=== PATIENT | female | born 2000 | race Caucasian/White ===

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

== ENCOUNTER 2024-02-12 13:07 | Outpatient (CLI) | payer OTHER, SELFPAY ==
--- NOTE | ~2024-02-12 | CT_ITS ---
EXAMINATION: CT abdomen pelvis w con DATE: 02/12/2024 13:42 INDICATION: Low abdominal pain. TECHNIQUE: Computed tomography (CT) of the abdomen and pelvis was performed with 100 mL Omnipaque 350 intravenous contrast. Automated exposure control and iterative reconstruction technique were employe d. The dose-length product was 1519.16 mGy-cm. COMPARISON: None. FINDINGS: The visualized portions of the lung bases demonstrate a calcified left lower lobe nodule, c onsistent with old granulomatous disease. No pleural effusion. The heart size is normal. No pericardi al effusion. The liver, gallbladder, spleen, pancreas, adrenal glands, and kidneys are normal. There are no dilated loops of bowel. The appendix is normal. There are no pathologically enlarged lymph nod es. There is no free intraperitoneal fluid. There is mild lumbar spondylosis. IMPRESSION: 1. No etiology for the patient's symptoms. Reviewed, dictated and finalized at location A. SYSTEMS ENGINEER
== END 2024-02-12 13:08 | disposition home or self-care (01) ==
PROVIDERS: PCP Family Medicine; Visit Provider Nurse Practitioner
DX: R10.30 Lower abdominal pain, unspecified (principal); R19.4 Change in bowel habit; K62.5 Hemorrhage of anus and rectum
CPT/HCPCS: 74177; Q9967

== ENCOUNTER 2024-02-23 00:45 | Day surgery (SDC) | payer OTHER, SELFPAY ==
[2024-02-10 14:55] VITALS: BMI 54.9
[2024-02-23 12:00] VITALS: BP 122/82; PULSE 93; RESP 18; TEMP 36.3; O2SAT 98
[2024-02-23 12:04] LABS: BEDSIDEPREGUCG Negative (Negative)
[2024-02-23] MEDS: LACTATED RINGERS 1,000 ML 150 ML IV CONT (12:06)
--- NOTE | 2024-02-23 12:38 | WPDANESEPPF ---
Anes - Initial Pre Proc Eval Procedure: Operation Date: 02/23/24 14:00 Proposed Procedures p Esophagogastroduodenoscopy & Colonoscopy - Eliel Sousa MD Date/Time: 02/23/24 12:38 Surgeon: Eliel Sousa MD Pre Op Diagnosis: Eructation,change in BM,constipation Patient Data Age: 23 Gender: F Height: 1.68 m Weight: 155.5 kg Last Vital Signs Temp 97.3 F L 02/23/24 12:00 Pulse 93 02/23/24 12:00 Resp 18 02/23/24 12:00 BP 122/82 02/23/24 12:00 Pulse Ox 98 02/23/24 12:00 O2 Del Method Room Air 02/23/24 12:00 Allergies Allergy/AdvReac Type Severity Reaction Status Date / Time No Known Allergies Allergy Mild Verified 02/10/24 14:34 Home Medications ?Medication ?Instructions ?Recorded ?Confirmed ?Type famotidine 40 mg tablet 40 mg PO DAILY #30 tabs 01/26/24 02/23/24 Rx norethindrone 1 mg-ethinyl 1 tablet PO DAILY 01/26/24 02/23/24 History estradiol 20 mcg (24)-iron 75 mg (4) tablet (Chica 24 Fe) naproxen 500 mg tablet 500 mg PO DAILY PRN pain 02/10/24 02/23/24 History Laboratory Tests 02/23/24 12:03 POC Urine HCG, Qual Negative (Negative) Patient hx anesthesia problems: none Family hx anesthesia problems: none Results Review: All pre-operative results and documents have been reviewed as part of the pre-operative evaluation. [facility] Social History Social History Smoking status: Never smoker Alcohol intake: never Substance use: never Substance use type: does not use Living arrangements: dorm student housing Additional living arrangements comments: Apartment in [facility] [place] [employer] [facility] care concerns: No Anes - Eval Final PreProcedure Day of Procedure 02/23/24 12:38 Patient weight: morbidly obese Heart: regular rate and rhythm Lungs: clear to auscultation Airway: Mallampati scale class II Neurological: alert and oriented Last oral intake: >/= 8 hours ASA classification: III Emergent: no Anesthetic plan: proceed Anesthesia type and monitoring: general GIVS and standard monitoring Results Review: All pre-operative results and documents have been reviewed as part of the pre-operative evaluation. BMI 55. 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 Informed Consent: The patient's anesthetic plan and its attendant risks and benefits were discussed with the patient/family/POA. Questions were solicited and answers provided to the satisfaction of the patient/family/POA.
--- NOTE | 2024-02-23 12:44 | WPDHPUPDATE1 ---
History and Physical Update Update Date/Time: 02/23/24 12:44 History and Physical has been reviewed, including an updated exam of the patient. There are NO changes in the patient's condition. Risks, benefits, and alternatives have been discussed and questions answered. Patient agrees to proceed with procedure.
--- NOTE | 2024-02-23 13:09 | SUR.OPER ---
EGD START 1252, END 1256 COLONOSCOPY START 1303, END 1309
[2024-02-23 13:14] VITALS: BP 124/97; PULSE 97; RESP 24; O2SAT 97
[2024-02-23 13:24] VITALS: BP 118/60; PULSE 79; RESP 17; O2SAT 100
[2024-02-23 13:34] VITALS: BP 112/59; PULSE 79; RESP 20; O2SAT 100
--- OUTSIDE RECORDS SUMMARY | 2024-03-01 03:03 | XMS_ITS | Clinical Summary ---
Author Organization [facility] Address [address] [place] [address] Care Team Providers Care Disintegrator Operator Name Role Phone Jeremiah Jean MD Primary Care Provider [phone]- [phone] [facility] [email or web address],non-[facility] Affiliates and Associated Physician Practices is amultiple site organization consisting of ambulatory clinics and hospital sitesin [place], [place], [place] and [place]. This disclosure is being madepursuant to the Care Everywhere program and may not contain all information available regarding this patient. Last updated 17.[facility] [email or web address] Allergies No known active allergies Medications * Be aware that medications may not be up to date on this document. Alwaysverify current medications with the patient. Medication Sig Dispensed Refills Start Date End Date Status riboflavin 100 MG tablet Take 4 tablets by mouth once daily 30 tablet 5 03/26/2019 Active naproxen (NAPROSYN) 500 MG tablet Take 1 tablet by mouth every 48 hours as needed for Pain 20 tablet 4 03/26/2019 Active ferrous sulfate 325 (65 FE) MG tablet Take 1 tablet by mouth 2 times daily 60 tablet 3 04/20/2019 Active Active Problems Problem Noted Date Diagnosed Date Chronic headache 03/26/2019 Family History Medical History Relation Name Comments Migraine Maternal Grandmother Brain Tumor Maternal Great-Grandmother Migraine Maternal Great-Grandmother Relation Name Status Comments Maternal Grandmother Maternal Great-Grandmother Social History Tobacco Use Types Packs/Day Years Used Date Smoking Tobacco: Passive Smo ke Exposure - Never Smoker Smokeless Tobacco: Never Sex and Gender Information Value Date Recorded Sex Assigned at Not on file Gender Identity Not on file Sexual Orientation Not on file Last Filed Vital Signs Vital Sign Reading Time Taken Comments Blood Pressure 110/62 04/19/2019 2:21 PM SENIOR MARKETING COORDINATOR Pulse 75 04/19/2019 2:21 PM SENIOR MARKETING COORDINATOR Temperature 36.7 ??C (98 ??F) 02/11/2019 8:47 AM SENIOR MARKETING COORDINATOR per pcp Respiratory Rate - - Oxygen Saturation 98% 04/19/2019 2:21 PM SENIOR MARKETING COORDINATOR Inhaled Oxygen Concentration - - Weight 120.2 kg (264 lb 15.9 oz) 04/19/2019 2:21 PM SENIOR MARKETING COORDINATOR Height 166.5 cm (5' 5.55 ) 04/19/2019 2:21 PM CS T Body Mass Index 43.36 04/19/2019 2:21 PM SENIOR MARKETING COORDINATOR Plan of Treatment Health Maintenance Due Date Last Done Comments PAP SMEAR 2002 HIV SCREENING 2017 HPV VACCINE (1 - 3-dose series) 2017 CHLAMYDIA/GONORRHEA SCREENING 2018 HEPATITIS C SCREENING 09/24/2020 DTAP/TDAP/TD VACCINES (1 - Tdap) 2021 HEPATITIS B VACCINE (1 of 3 - 19+ 3-dose series) 2021 DEPRESSION SCREENING 03/03/2023 COVID-19 VACCINE (1 - 2023-2 5 season) 2023 INFLUENZA VACCINE (#1) 2023 ZOSTER VACCINE (1 of 2) 2052 HIB VACCINE Aged Out No longer eligi ble based on patient's age to complete this topic MENINGOCOCCAL VACCINE Aged Out No carol agatha eligible based on patient's age to complete this topic PNEUMOCOCCAL VACCINE Aged Out No long er eligible based on patient's age to complete this topic Care Teams Disintegrator Operator Relationship Specialty Start Date End Date Jeremiah Jean MD [address] [place] [address] PCP - General Family Medicine 02/16/19
--- OUTSIDE RECORDS SUMMARY | 2024-03-01 03:03 | XMS_ITS | Patient Health Summary ---
Author Organization [facility] Address [address] [facility] [facility] [place] [address] Care Team Providers Care Automobile Radio Repairer Name Role Phone Jeremiah Jean MD Primary Care Provider [phone]- [phone] Note from [facility],non-owned Affiliates and Associated Physician Practices is amultiple site organization consisting of ambulatory clinics and hospital sitesin [place], [place], [place] and [place]. This disclosure is being madepursuant to the Care Everywhere program and may not contain all information available regarding this patient. Last updated 17.[facility] Allergies No known active allergies Medications * Be aware that medications may not be up to date on this document. Alwaysverify current medications with the patient. * riboflavin 100 MG tablet(Started 03/26/2019) Take 4 tablets by mouth once daily 5 refills by 03/25/2020 * naproxen (NAPROSYN) 500 MG tablet(Started 03/26/2019) Take 1 tablet by mouth every 48 hours as needed for Pain 4 refills by 03/25/2020 * ferrous sulfate 325 (65 FE) MG tablet(Started 04/20/2019) Take 1 tablet by mouth 2 times daily 3 refills by 04/19/2020 Active Problems Problem Noted Date Diagnosed Date Chronic headache 03/26/2019 Social History Tobacco Use Types Packs/Day Years Used Date Smoking Tobacco: Passive Smo ke Exposure - Never Smoker Smokeless Tobacco: Never Sex and Gender Information Value Date Recorded Sex Assigned at Not on file Gender Identity Not on file Sexual Orientation Not on file Last Filed Vital Signs Vital Sign Reading Time Taken Comments Blood Pressure 110/62 04/19/2019 2:21 PM SCIENTIFIC INFORMATICS LEADER Pulse 75 04/19/2019 2:21 PM SCIENTIFIC INFORMATICS LEADER Temperature 36.7 ??C (98 ??F) 02/11/2019 8:47 AM SCIENTIFIC INFORMATICS LEADER per pcp Respiratory Rate - - Oxygen Saturation 98% 04/19/2019 2:21 PM SCIENTIFIC INFORMATICS LEADER Inhaled Oxygen Concentration - - Weight 120.2 kg (264 lb 15.9 oz) 04/19/2019 2:21 PM SCIENTIFIC INFORMATICS LEADER Height 166.5 cm (5' 5.55 ) 04/19/2019 2:21 PM CS T Body Mass Index 43.36 04/19/2019 2:21 PM SCIENTIFIC INFORMATICS LEADER Procedures * FERRITIN(Performed 04/19/2019) Performed for Restless legs syndrome (RLS) * VITAMIN D 25-HYDROXY(Performed 04/19/2019) Performed for Restless legs syndrome (RLS) Results * (ABNORMAL) VITAMIN D (25-HYDROXY) (04/19/2019 3:11 PM SCIENTIFIC INFORMATICS LEADER) Vitamin D, 25 Hydroxy 19.1(L) 20 - 100 ng/mL 04/19/2019 5:35 PM SCIENTIFIC INFORMATICS LEADER [facility] Blood BLOOD SPECIMEN / Unknown Lab Venipuncture / Unknown 04/19/2019 3:11 PM SCIENTIFIC INFORMATICS LEADER 04/19/2019 3:23 PM SCIENTIFIC INFORMATICS LEADER Narrative [facility] - 04/19/2019 5:35 PM SCIENTIFIC INFORMATICS LEADER Vitamin D Status: ?Deficient ? <10 ?? ng/mL ? Borderline ?10-20 ng/mL ?Sufficient ?>20 ?? ng/mL ?Toxic ? >100 ??ng/mL Cristina Lucas APRN-SLIVER LAP TENDER LAB - CHEMISTR Y ORDERABLES Performing Organization Address City/State/[place]UST de Phone Number [facility] [address] [place] [address]. [place] [address] * FERRITIN (04/19/2019 3:11 PM SCIENTIFIC INFORMATICS LEADER) Ferritin 10 10 - 120 ng/mL 04/19/2019 5:35 PM SCIENTIFIC INFORMATICS LEADER [facility] Blood BLOOD SPECIMEN / Unknown Lab Venipuncture / Unknown 04/19/2019 3:11 PM SCIENTIFIC INFORMATICS LEADER 04/19/2019 3:23 PM SCIENTIFIC INFORMATICS LEADER Cristina Lucas HARDWARE ENGINEERING MANAGER-SLIVER LAP TENDER LAB - CHEMISTR Y ORDERABLES Performing Organization Address City/State/[facility] Co de Phone Number [facility] [address] [place] [id number] Care Teams Automobile Radio Repairer Relationship Specialty Start Date End Date Jeremiah Jean MD [address] [place] [phone] PCP - General Family Medicine 02/16/19
--- OUTSIDE RECORDS SUMMARY | 2024-03-01 03:03 | XMS_ITS | Encounter Summary ---
Author Organization [facility] Address [address] [place] [address] Care Team Providers Care Ramp Service Agent Name Role Phone Jeremiah Jean MD Primary Care Provider [phone]- [phone] Reason for Visit * Reason Onset Date Comments MEDICATION REFILL 04/20/2019 Encounter Details Date Type Department Care Team (Late st Contact Info) Description 04/20/2019 Refill [facility] Pediatrics - Sleep [address] [place] [address] Cristina Lucas, STRIPPING AND BOOKING MACHINE OPERATOR-DRAW IN HAND [address] [place] [address] MEDICATION REFILL Social History Tobacco Use Types Packs/Day Years Used Date Smoking Tobacco: Passive Smo ke Exposure - Never Smoker Smokeless Tobacco: Never Sex and Gender Information Value Date Recorded Sex Assigned at Not on file Gender Identity Not on file Sexual Orientation Not on file documented as of this encounter Plan of Treatment Not on file documented as of this encounter Visit Diagnoses Not on filedocumented in this encounter Care Teams Ramp Service Agent Relationship Specialty Start Date End Date Jeremiah Jean MD [address] [place] [phone] PCP - General Family Medicine 02/16/19 documented as of this encounter
--- OUTSIDE RECORDS SUMMARY | 2024-03-01 03:03 | XMS_ITS | Encounter Summary ---
Author Organization [facility] Address [address] [place] [address] Care Team Providers Care Press Clippings Cutter And Paster Name Role Phone Jeremiah Jean MD Primary Care Provider Encounter Details Date Type Department Care Team (Latest Contact Info) Description 07/23/2019 Travel Social History Tobacco Use Types Packs/Day Years Used Date Smoking Tobacco: Passive Smo ke Exposure - Never Smoker Smokeless Tobacco: Never Sex and Gender Information Value Date Recorded Sex Assigned at Not on file Gender Identity Not on file Sexual Orientation Not on file COVID-19 Exposure Response Date Recorded In the last month, have you been in contact with someone who was confirmed or suspected to have Coronavirus / COVID-19? Unable to assess 07/23/2019 9:25 AM CDT documented as of this encounter Plan of Treatment Not on file documented as of this encounter Visit Diagnoses Not on filedocumented in this encounter Care Teams Press Clippings Cutter And Paster Relationship Specialty Start Date End Date Jeremiah Jean MD [address] [place] [address] PCP - General Family Medicine 02/16/19 documented as of this encounter
--- OUTSIDE RECORDS SUMMARY | 2024-03-01 03:03 | XMS_ITS | Encounter Summary ---
Author Organization [facility] Address [address] [place] [address] Care Team Providers Care Mail Clerk Bills Name Role Phone Jeremiah Jean MD Primary Care Provider Encounter Details Date Type Department Care Team (Latest Contact Info) Description 06/11/2019 Travel Social History Tobacco Use Types Packs/Day [...] have Coronavirus / COVID-19? Unable to assess 06/11/2019 12:07 PM CDT documented as of this encounter Plan of Treatment Not on file documented as of this encounter Visit Diagnoses Not on filedocumented in this encounter Care Teams Mail Clerk Bills Relationship Specialty Start Date End Date Jeremiah Jean MD [address] [place] [address] PCP - General Family Medicine 02/16/19 documented as of this encounter
--- OUTSIDE RECORDS SUMMARY | 2024-03-01 03:03 | XMS_ITS | Encounter Summary ---
Author Organization [facility] Address [address] [place] [address] Care Team Providers Care Emulsion Operator Name Role Phone Jeremiah Jean MD Primary Care Provider [phone]- [phone] Encounter Details Date Type Department Care Team (Late st Contact Info) Description 04/20/2019 Orders Only [facility] Pediatrics - Sleep [address] [place] [address] Cristina Lucas, ACCOUNTING SUPERVISOR-CHIN STRAP CUTTER [address] [place] [address] Social History Tobacco Use Types Packs/Day Years [...] on filedocumented in this encounter Care Teams Emulsion Operator Relationship Specialty Start Date End Date Jeremiah Jean MD [address] [place] [address] PCP - General Family Medicine 02/16/19 documented as of this encounter
--- OUTSIDE RECORDS SUMMARY | 2024-03-01 03:03 | XMS_ITS | Referral Summary ---
Author Organization [facility] Address [address] [place] [address] Care Team Providers Care Upper Marker Name Role Phone Jeremiah Jean MD Primary Care Provider +1- [phone] Source Comments [facility],non-[facility] Affiliates and Associated Physician Practices is amultiple site organization consisting of ambulatory clinics and hospital sitesin [place], [place], [place] and [place]. This disclosure is being madepursuant to the Care Everywhere program and may not contain all information available regarding this patient. Last updated 17.[facility] [email or web address] Allergies No known active allergies Medications * [...] Comments Blood Pressure 110/62 04/19/2019 2:21 PM FISHER TROLL LINE Pulse 75 04/19/2019 2:21 PM FISHER TROLL LINE Temperature 36.7 ??C (98 ??F) 02/11/2019 8:47 AM FISHER TROLL LINE per pcp Respiratory Rate - - Oxygen Saturation 98% 04/19/2019 2:21 PM FISHER TROLL LINE Inhaled Oxygen Concentration - - Weight 120.2 kg (264 lb 15.9 oz) 04/19/2019 2:21 PM FISHER TROLL LINE Height 166.5 cm (5' 5.55 ) 04/19/2019 2:21 PM CS T Body Mass Index 43.36 04/19/2019 2:21 PM FISHER TROLL LINE Plan of Treatment Not on file Care Teams Upper Marker Relationship Specialty Start Date End Date Jeremiah Jean MD [address] [place] [phone] PCP - General Family Medicine 02/16/19
--- OUTSIDE RECORDS SUMMARY | 2024-03-01 03:04 | XMS_ITS | Encounter Summary ---
Author Organization [facility] Address [address] [place] [address] Phone Care Team Providers Care Apple Sorter Name Role Phone Jeremiah Jean MD Primary Care Provider [phone]- [phone] Encounter Details Date Type Department Care Team (Late st Contact Info) Description 09/24/2021 7:25 AM CDT - 09/24/2021 8:44 AM CDT Surgery [facility] [address] [place] [address] Shilo Valdes MD [address] [address] EXCISION OF RIGHT LOWER LIP LESION WITH PRIMARY CLOSURE Surgery Details Date/Time Status Location OR Service Patient Class Case Cl ass Case Type Trauma Case? 09/24/2021 7:25 AM Posted [facility] OR OR [address] [place] [address] Ambulatory Surgery Urgent Panel 1 Procedure LRB Anes Op Region Wound Class Comments EXCISION OF RIGHT LOWER LIP LESION WITH PRIMARY CLOSURE Right Monitored Anesthesia Care Face Clean Surgeon Surgeon Role Service Panel Shilo Valdes MD Primary Plastic 1 documented in this encounter Social History Tobacco Use Types Packs/Day Years Used Date Smoking Tobacco: Never Smokeless Tobacco: Never Alcohol Use Standard Drinks/Week Comments Never 0 (1 standard drink = 0.6 oz pur e alcohol) Comments Unknown Sex and Gender Information Value Date Recorded Sex Assigned at Not on file Legal Sex Female 3:51 PM CDT Gender Identity Not on file Sexual Orientation Not on file COVID-19 Exposure Response Date Recorded In the last 10 days, have yo u been in contact with someone who was confirmed or suspected to have Coronavirus/COVID-19? No / Unsure 09/24/2021 6:15 AM CDT documented as of this encounter Last Filed Vital Signs Vital Sign Reading Time Taken Comments Blood Pressure 116/56 09/24/2021 8:36 AM CDT Pulse 83 09/24/2021 6:45 AM CDT Temperature 36.1 ??C (97 ??F) 09/24/2021 8:36 AM CDT Respiratory Rate 16 09/24/2021 8:36 AM CDT Oxygen Saturation 98% 09/24/2021 8:36 AM CDT Inhaled Oxygen Concentration - - Weight 134.7 kg (297 lb) 09/21/2021 4:00 PM CDT Height 170.2 cm (5' 7 ) 09/21/2021 4:00 PM CDT Body Mass Index 46.52 09/21/2021 4:00 PM CDT Body Mass Index Percentile 99.81% 09/21/2021 4:0 0 PM CDT Growth Chart: [facility] (Girls, 2- 20 Years) documented in this encounter Discharge Instructions * Discharge Instructions* Lizzette Marc RN - 09/24/2021 8:17 AM CDT DISCHARGE INSTRUCTIONS: Please follow any instructions given to you or your family by your doctor. You may experience light-headedness and/or dizziness and you may feel sleepy after your surgery. Rest at home with moderate activity as tolerated, unless otherwise instructed by your doctor. You may gradually resume your normal activities. Do Not Drive a motor vehicle or operate machinery or power tools for 24 hours. A child should not ride a bike or climb gym sets, etc. NAUSEA AND VOMITING: ??? Causes- Some anesthetics and pain medications may produce nausea and vomiting in certain individuals. ??? Treating- If nausea and vomiting occurs after you get home, please return to a liquid diet until the following morning. If nausea continues after maintaining a liquid diet, please contact your surgeon's office for further instructions. ??? Preventing- Slowly progress to your usual or regular diet, unless your physician has instructedyou otherwise. Begin with liquids, followed by light food, and then solid foods as tolerated. Eating before taking pain medications may reduce nausea. PAIN MANAGEMENT: ??? Causes- Unfortunately, you are likely to experience pain or discomfort after surgery and duringthe recovery period at home. ??? Treating- If you have been prescribed pain medication, take it as ordered by your doctor. If your pain is not being well controlled, please call your doctor. ??? Preventing- Please follow any activity restrictions that your doctor has provided. It is helpful to take your pain medication while pain is mild/moderate rather than waiting until your pain has become severe. POST OPERATIVE BLEEDING: ??? Causes- Some bleeding is normal and can be expected depending on the surgery. It is normal to have some clear or bloody drainage on the wound or dressing for the first few days after surgery. ??? Treating- Bleeding or drainage requiring frequent dressing changes can be a sign of a problem. If you are concerned about the amount of bleeding or develop a hematoma/swelling around the surgicalsite, please contact your doctor. ??? Preventing- Please follow any restrictions or instructions given to you by your doctor. INFECTION PREVENTION: Wash your hands often. Wash your hands before and after checking your incision. Shower or bathe daily if instructed to do so by your doctor. Check your incision daily. Look for signs of infection such as redness with swelling or streaking, foul odor, yellow or green drainage, or a fever over 100.5 degrees. Call your doctor if any of theseoccur. If your doctor has ordered an antibiotic, finish the entire prescription as instructed on the label, even if you are feeling fine. Do not apply any lotions, powders, or ointments to your wound unless your doctor has instructed youto do so. IF AT ANY TIME YOU ARE UNABLE TO CONTACT YOUR DOCTOR AND YOU FEEL YOUR SIGNS OR SYMPTOMS NEED ATTENTION, PLEASE GO TO THE EMERGENCY DEPARTMENT. EXCELLENT CARE EXCELLENT SERVICE Thank you for trusting [facility] with your healthcare. Following your visit with us, you may be randomly selected to receive a call from [employer] about the care you received. Please take a few minutes to provide your feedback. Your thoughts, ideas, and suggestions help us continue to provide excellent care. documented in this encounter Medications at Time of Discharge acetaminophen (TYLENOL) 500 MG Tablet Take 1 Tablet by mouth every 6 hours as needed for Fever (for temperature greater than 100.4 F.). Do not exceed 4000 mg of acetaminophen in 24 hour from all sources. 0 09/24/2021 amitriptyline (ELAVIL) 50 MG Tablet Take 50 mg by mouth nightly as needed. cetirizine (ZyrTEC) 10 MG Tablet Take 10 mg by mouth daily as needed. ergocalciferol (VITAMIN D) 74369 UNIT CapsuleIndicatio ns:Vitamin D Deficiency Take 50,000 Units by mouth once a week. Indications: Vitamin D Deficiency ibuprofen (MOTRIN) 600 MG Tablet Take 1 Tablet by mouth every 6 hours as needed for Mild or more severe pain (for temperature greater than 100.4 F.). 30 Tablet 09/24/2021 Norgestimate-eth inyl estradiol (Estarylla) 0.25-35 MG-MCG Tablet Take 1 Tablet by mouth daily. SUMAtriptan (IMITREX) 100 MG Tablet Take 100 mg by mouth daily as needed for Migraine. Use as directed. May repeat dose in 2 hours if headache recurs. documented as of this encounter H&P Notes * Shilo Valdes MD - 09/24/2021 7:05 AM CDT The patient was examined, the H and P and other relevant medical records were reviewed. No changes that are significant for the planned course of treatment have occurred. SHILO VALDES MD, 09/24/2021, 7:05 AM CDT HP is in the paper chart documented in this encounter OR Notes * OR Surgeon - Shilo Valdes MD - 09/24/2021 8:10 AM CDT PLASTICS OPERATIVE REPORT ADMIT DATE: 09/24/2021 PATIENT INFORMATION: Lorena Escalante (: 2000) CONTACT SERIAL NUMBER: [id number] PROVIDER: Shilo Valdes MD DATE OF PROCEDURE: 09/24/2021 ADMISSION DATE: 09/24/2021 SURGEON: Shilo Valdes MD MANAGER LAND(S): 1st Scrub: Enma Mayen CST-It Infrastructure Specialist Primary Box Repairer: Jennifer Merlos RN ANESTHESIA: Monitored Anesthesia Care, 1% lido with epi PROCEDURE(S): 1. 6mm lip lesion excision 2. 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 Healthy bleeding. Clean excision with good closure. COMPLICATIONS: None Apparent SPECIMEN(S): ID Type Source Tests Collected by Time A : LOWER LIP LESION Tissue Lip PATHOLOGY SURGICAL Shilo Valdes MD 09/24/2021 0800 INDICATIONS: Briefly the patient is an 20-year-old female with a previous venous Dyer of the lid. This was treated with laser. Now has a protruding huntley angioma versus hemangioma versus pyogenic granuloma. The risks benefits alternatives of primary excision were explained to the patient. She was amenable wished to proceed. PROCEDURE: After informed consent was obtained the patient was brought back to the operating room. Sequential compression boots were applied to the lower extremities. Monitored Anesthesia Care was provided by the anesthesia service. Perioperative antibiotics were administered. A universal time out was performed to confirm the patient, procedure, and laterality of the procedure. Patient was then prepped and draped in the usual sterile fashion using Betadine. After 3 minutes drying time we proceeded. The patient was then injected in a mental nerve block on the right side with 1% lidocaine with epinephrine mixed with bicarbonate. An additional 1 cc was injected around the lesion to help with hemostasis. Total 5 cc were injected. The patient was then incised with a 15 blade scalpel in a vertical ellipse down the level of vermilion border not involving the cutaneous portion of the white portion of the lip. This is incised down the level of the orbicularis muscle. This was taken out EN bloc andsent for permanent pathology. The total size the lesion was 6 mm. Pressure was held for hemostasis. The oxygen was turned off. Bipolar electrocautery was used to cauterize the feeding vessel in all of the bleeding on the level of the muscle. This was then undermined slightly on the edges. The skin was then brought together along the vermilion using simple interrupted 5 0 chromic suture.This was closed in a length of 1.1 cm in a simple fashion. At the end of the procedure the patient was cleaned of any residual blood or prep. Sponge and instrument count was performed x2 all counts were correct. The patient tolerated this nicely. She was then awoken from anesthesia. Bacitracin was placed on the lip. She was then transferred to bed and sentto PACU in stable condition. DISPOSITION/PLAN: Follow-up in 1 week for suture check. No antibiotics required. Will follow up on pathology. I have checked the information available via the [place] Prescription Monitoring Program Database for Lorena Escalante prior to prescribing a controlled substance. 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) Post-operative Diagnosis: PYOGENIC GRANULOMA, VENOUS DYER LIP Intra-op Complications: * No complications entered in OR log * Anesthesia Type: Monitored Anesthesia Care Anesthesia Staff: Anesthesiologist: Ronny Henry MD INSIDE SALES COORDINATOR: Jermain Chaudhari APRN, CRNA EBL: 3 mL ML Patient Vitals for the past 24 hrs: BP Temp Pulse Heart Rate (Monitor) Resp SpO2 Temp src 09/24/21 0836 116/56 97 ??F (36.1 ??C) -- 65 16 98 % Temporal 09/24/21 0810 130/65 97.2 ??F (36.2 ??C) -- 78 16 98 % Temporal 09/24/21 0645 135/73 98 ??F (36.7 ??C) 83 -- 18 99 % Oral Patient Vitals for the past 24 hrs (Last 4 readings): Heart Rate (Monitor) 09/24/21 0836 65 09/24/21 0810 78 No results found for: GLUCOSEPOCT Patient is sufficiently recovered from the acute administration of the anesthesia so as to participate in the evaluation: yes Respiratory function stable: Yes Walter: Cardiovascular function stable: yes Mental status: oriented Temperature in safe range: yes Pain control adequate: yes Nausea and vomiting adequately controlled: yes Postoperative hydration status adequate: yes Anesthetic complications: no All criteria for medical direction were met: yes COMMENTS: Vital signs stable no apparent anesthesia complications at this time. Patent airway. ANUPAMA DAVILA MD 09/24/2021 9:53 AM CDT Revised 10/28/2016 ANUPAMA DAVILA MD 09/24/2021 9:53 AM CDT Revised 10/28/2016, 04/03/2017, 05/07/2018, 05/26/2019 * Interdisciplinary - Lizzette Marc RN - 09/24/2021 8:41 AM CDT I certify this discharge criteria is met. Criteria assessment (Adult and Pediatric) for Evaluation for readiness for Discharge 1. Respiratory function assessment including respiratory rate, airway patency, and oxygen saturation. 2. Cardiovascular function including pulse rate and blood pressure. 3. Mental Status 4. Temperature 5. Pain Score (Comfort Level) 6. Nausea and Vomiting 7. Post-operative hydration Depending on the specific surgery or procedure performed additional types of monitoring and assessments (for example Stop-Bang score) may be included. 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) Post-operative Diagnosis: PYOGENIC GRANULOMA, VENOUS DYER LIP Intra-op Complications: * No complications entered in OR log * Anesthesia Type: Monitored Anesthesia Care Anesthesia Staff: Anesthesiologist: Ronny Henry MD INSIDE SALES COORDINATOR: Jermain Chaudhari APRN, CRNA EBL: 0 ml Report given to (name): Lizzette BROCK Patient care transferred to [facility] B/P: 130/65 Pulse rate: 77 Resp rate: 16 O2 Sat: 99 O2 Therapy: None Temperature: 97.2 Pain score on arrival: 0 Walter: Activity: 2 Respiration: 2 Circulation: 2 Consciousness: 2 Color: 2 Total Walter: 10 STOPBANG SCORE: 2 PQRS 426/427 TRANSFER OF CARE Was care transferred to PACU/SDS/ENDO/IR/OB/Floor/animal laboratory helper RN using transfer of care protocol listed below? YES Was care transferred to ICU/CVU RN using transfer of care protocol listed below? N/A MIPS 477 Did the patient receive 2 or more pain medications, not including narcotics, in the perioperative period (6 hrs prior to anesthesia start time to discharge from the post-anesthesia care unit) YES These include: 1. Non-steroidal anti-inflamatory drugs, Toradol, Tylenol, Celebrex, Aspirin or any other NSAID's 2. NMDA antagonists, Ketamine, Magnesium 3. Gabapentinoids, Gabapentin and Pregabalin 4. Regional block, spinal, axillary, ISB, TAP, epidural, etc. 5. Steroids such as Dexamethasone 6. Local anesthetics, field infiltration by surgeon, systemic lidocaine Note: patients less than 18 years old and/or emergent cases excluded. Comments: VSS. No immediate post anesthesia complications. Transfer protocol SDS/PACU/Endo/IR/Floor/OB/animal laboratory helper The colbert handoff elements that must be included in the transition of care are: 1. Identification of patient 2. Identification of responsible practitioner (PACU nurse or advanced practitioner) 3. Discussion of pertinent medical history 4. Discussion of the surgical/procedure course (procedure, reason for surgery, procedure performed) 5. Intraoperative anesthetic management and issues/concerns. 6. Expectations/Plans for the early post-procedure period. 7. Opportunity for questions and acknowledgement of understanding of report from the receiving PACUteam Transfer protocol ICU/CVU The colbert handoff elements that must be included in the transfer of care protocol or checklist include: 1) Identification of patient, colbert family member(s) or patient surrogate 2) Identification of responsible practitioner (primary service) 3) Discussion of pertinent/attainable medical history 4) Discussion of the surgical/procedure course (procedure, reason for surgery, procedure performed) 5) Intraoperative anesthetic management and issue/concerns to include things such as airway, hemodynamic, narcotic, sedation level and paralytic management and intravenous fluids/blood products and urine output during the procedure 6) Expectations/Plans for the early post-procedure period to include things such as the anticipatedcourse (anticipatory guidance), complications, need for laboratory or ECG and medication administration 7) Opportunity for questions and acknowledgement of understanding of report from the receiving ICU team JERMAIN CHAUDHARI APRN, CRNA 09/24/2021, 8:06 AM CDT Revised 12/01/2015, 04/03/2017, 06/29/2018, 05/26/2019 * Anesthesia Pre-op Ronny Pedro MD - 09/24/2021 6:43 AM CDT [facility] ANESTHESIA PREOPERATIVE NOTE ADULT (>12yo) Procedure(s) (LRB): EXCISION OF RIGHT LOWER LIP LESION WITH PRIMARY CLOSURE (N/A) PYOGENIC GRANULOMA, 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 No data found.No data found. Wt Readings from Last 1 Encounters: 09/21/21 (!) 297 lb (134.7 kg) (>99 %, Z= 2.76)* * Growth percentiles are based on CDC (Girls, 2-20 Years) data. Body mass index is 46.52 kg/m??. Ht Readings from Last 1 Encounters: 09/21/21 5' 7 (1.702 m) (86 %, Z= 1.07)* * Growth percentiles are based on CDC (Girls, 2-20 Years) data. No Known Allergies Past Medical History Positives Diagnosis Date ??? Dysmenorrhea ??? Iron deficiency ??? Migraine ??? Vitamin D deficiency Past Surgical History: Procedure Laterality Date ??? [facility] T[facility] [id number] Right Social History Substance and Sexual Activity Alcohol Use Never Social History Substance and Sexual Activity Drug Use Never Social History Tobacco Use Smoking Status Never Smoker Smokeless Tobacco Never Used Prior to Admission Medications Prescriptions Last Dose Informant Patient Reported? Taking? Norgestimate-ethinyl estradiol (Estarylla) 0.25-35 MG-MCG Tablet 09/21/2021 at Unknown time Yes Yes Sig: Take 1 Tablet by mouth daily. SUMAtriptan (IMITREX) 100 MG Tablet > Month at Unknown time Yes Yes Sig: Take 100 mg by mouth daily as needed for Migraine. Use as directed. May repeat dose in 2 hoursif headache recurs. amitriptyline (ELAVIL) 50 MG Tablet > Month at Unknown time Yes Yes Sig: Take 50 mg by mouth nightly as needed. cetirizine (ZyrTEC) 10 MG Tablet > Month at Unknown time Yes Yes Sig: Take 10 mg by mouth daily as needed. ergocalciferol (VITAMIN D) 99911 UNIT Capsule 09/21/2021 at Unknown time Yes Yes Sig: Take 50,000 Units by mouth once a week. Indications: Vitamin D Deficiency Facility-Administered Medications: None Current Facility-Administered Medications Medication Dose Route Frequency Provider Last Rate Last Admin ??? ceFAZolin (ANCEF) 3 g in sodium chloride 0.9 % 100 mL IVPB 3 g Intravenous Once Shilo Valdes MD ??? electrolyte-R (NORMOSOL-R) solution 1,000 mL 1,000 mL Intravenous Continuous Shilo Valdes MD There are no discontinued medications. No results found for: WBC, HEMOGLOBIN, HEMATOCRIT, PLATELETCNT, MCV No results found for: SODIUM, POTASSIUM, CHLORIDE, CO2VEN, ANIONGAP, GLUCOSE, BUN, CREATININE, BCRATIO8, TOTALPROTEIN, ALBUMIN, AGRATIO, CALCIUM, TBIL, SGOTAST, SGPTALT, ALKALINEPHO, GFRNA, GFRA No results found for: INR, PTP No results found for: PTT No results found for: HGBA1C No results for input(s): BNP, BNPPOCT in the last 72 hours. No results found for: CPK, CPKI, CKMB, CKMBNI, CKMBPOCT, CKMBRELINDX, TROPONINI, POCTRP No results found for: GLUCOSEPOCT No results found for: HCGQ, UHCG, URPREG, PREG LMP: No LMP recorded. STOPBANG SCORE: Stop Bang Risk Score: (High risk of NELLA: answering yes to five or more items): 2 CXR: No results found. PQRS 130 MEDICATION REVIEW Using all immediate resources available today, I have reviewed all of the patients known prescriptions, over-the counters, herbals, and vitamin/mineral/dietary (nutritional) supplements including themedications??? name, dosages, frequency and route of administration. YES Risks, benefits, alternatives, side effects, and complications explained to patient/guardian and all questions answered. I have reviewed the chart, examined the patient, and prescribed the anestheticplan. YES Comments: RONNY HENRY MD 09/24/2021, 6:44 AM CDT STRESS TEST/CATH: ECHO: No results found for this or any previous visit. Blood/products ordered: AIRWAY ASSESSMENT: Mallampati Scale: 2 TM distance: >3fb Neck ROM: full Teeth: Natural Difficult Airway Anticipated: No PHYSICAL EXAM: Lungs: CTA bilat Heart:: S1S2 no murmur Other: NPO SOLIDS: 1800 NPO CLEAR LIQUIDS: 2400 MIPS 404 Is the patient over 18 years old AND a current cigarette smoker? YES Was the patient seen pre-operatively/pre-procedure by an Anesthesiologist, INSIDE SALES COORDINATOR, or RNAI, PRIOR TO THE DAY OF THE CURRENT PROCEDURE: YES If the answer to both questions above is YES , enter the .404 smartphrase below. Patient or family history of anesthesia complications/MH: No : PONV Risk Assesment: General anesthetic with volatile agent not planned. If planned, insert .PONV smartphrase. ASA physical status: 2 Anesthetic plan: MAC Post-op pain procedure: None Invasive monitors: Comments: The anesthesia process, recovery, risks and side effects were discussed with the patient/guardian and all questions were answered. Yes RONNY HENRY MD 09/24/2021, 6:43 AM CDT Revised: 05/16/2015, 04/04/2017, 06/2017, 11/26/2017, 03/31/2018, 05/26/2019 * Interdisciplinary - Deloris Sears RN - 09/21/2021 5:16 PM CDT [facility] ADULT TEACHING Patient Name: Lorena Escalante : 2000 [facility]#: [id number] Person Educated Parent Ready to Learn Yes Teaching Method Phone The Day of Surgery: Call your physician if your physical condition changes (cold, fever, flu). Do not come to the hospital without first calling your physician. Do not eat or drink (no gum, mints, water etc.) unless instructed to do so for at least 8 hours prior to arrival to the hospital. Medications can be taken with a small sip of water. Do not drink any alcohol 24 hours prior to surgery if applicable. Do not smoke for 24 hrs prior to surgery if applicable. Bring CPAP/BIPAP if applicable. Take a shower or bath. Do not apply make-up Wear comfortable, loose fitting clothing Instruction to leave all jewelry at home including wedding/engagement rings or any body piercing jewelry. Leave all valuables at home. Children ages 17 and under must be accompanied by a parent or legal guardian in the hospital at alltimes. Follow your surgeon's instructions for arrival time. If you have questions concerning arrival time,call your surgeon's office. Detailed instructions given for arrival location and parking. Arrange for a responsible person to accompany you, drive you home and stay with you for the first 24 hours following your surgery. If you have not made these arrangements you may be at risk of your surgery being cancelled. Follow directions regarding medications to Take or Hold. It is very important to follow directions from your surgeon's office on Diabetic medication or Blood Thinners. One adult over the age of 17 will be allowed to accompany you to pre-operative area. This designated adult primary care sales representative will be given an armband in the waiting room on the day of your procedure. No children under the age of 17 will be allowed in preop. If you choose to bring children under the age of 17, an adult must accompany those children in the surgery waiting room at all times and cannot leave them unattended. During the flu season: refer to the visitation restriction guidelines implemented during that season if applicable. Patient Response: Verbalizes Understanding Patient assessed for speech/language therapist during the preop interview and appropriate interventions taken if applicable. * Interdisciplinary - Deloris Sears RN - 09/21/2021 4:42 PM CDT [place] Supervisor tried calling patient in PAS, no answer, left message. Orders placed for procedure. Added allergies, medications and medical history per H&P and case booking form. documented in this encounter Plan of Treatment Not on file documented as of this encounter Procedures Procedure Name Priority Date/Time Associated Diagnosis Comments PATHOLOGY SURGICAL Routine 09/24/2021 8: 00 AM CDT LESION / MASS / CYST EXCISION 09/24/2021 7:25 AM CDT PYOGENIC GRANULOMA, VENOUS DYER LIP documented in this encounter Results * Pathology Surgical (09/24/2021 8:00 AM CDT) Case Report Surgical Pathology Report ? Case: [id number] ? Authorizing Provider: ??Shilo Valdes ?Collected: ? 09/24/2021 08:00 AM ? MD Aric ? Ordering Location: ? [facility] Main OR ?Received: ?09/24/2021 09:14 AM ? Pathologist: ? Satya Werner MD ? Specimen: ?Lip, LOWER LIP LESION ? 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 LOWER LIP LESION The specimen is labeled lower lip lesion and consists of a 0.6 x 0.5 x 0.4 cm rubbery, blue stained tissue fragment that is partially overlaid by wrinkled epithelium. The specimen is inked and bisected. All submitted. 09/25/2021 12:25 PM T [facility] Tissue LIP STRUCTURE / Unknown 09/24/2021 8:00 AM CDT 09/24/2021 9:14 AM CDT us Shilo Valdes MD PATHOLOGY/CYTOLOGY ORDERABLES Final Result [facility] [address] [place] [address] documented in this encounter Visit Diagnoses Not on filedocumented in this encounter Administered Medications Inactive Administered Medications - up to 3 most recent administrations Medication Order MAR Action Action Date Dose Rate Site acetaminophen (TYLENOL) tablet 1,000 mg 1,000 mg, Oral, ONCE, 1 dose, On Fri09/24/21 at 0730, Maximum dose of acetaminophen is 4000 mg from all sources in 24 hours., PRE-OP (SURGERY) Given 09/24/2021 7:05 AM CDT 1,000 mg acetaminophen (TYLENOL) tablet 500 mg 500 mg, Oral, ONCE PRN, 1 dose, Starting on Fri09/24/21 at 0648, Until Fri09/24/21 at 1047, Other, if not given pre-op. Hold for history of liver failure., Maximum dose of acetaminophen is 4000 mg from all sources in 24 hours., PACU (I & II) ceFAZolin (ANCEF) 3 g in sodium chloride 0.9 % 100 mL IVPB 3 g, Intravenous, ONCE, 1 dose, On Fri09/24/21 at 0800, Administer over 30 Minutes, PRE-OP (SURGERY), Indications: Perioperative Pharmacoprophylaxis, at 200 mL/hrIndications:Perioperat glen Pharmacoprophylaxis New Bag 09/24/2021 7:40 AM CDT 3 g 200 mL/hr dexamethasone (DECADRON) injection 8 mg 8 mg, Intravenous, ONCE PRN, 1 dose, Starting on Fri09/24/21 at 0648, Until Fri09/24/21 at 1047, Third Line Antiemetic Give if nausea/vomiting recurs after 2nd line therapy., PACU (I & II), Nausea third line electrolyte-R (NORMOSOL-R) solution 1,000 mL 1,000 mL, Intravenous, CONTINUOUS, Starting on Fri09/24/21 at 0700, Until Fri09/24/21 at 1047, PRE-OP (SURGERY) New Bag 09/24/2021 6:50 AM CDT 1,000 mL fentaNYL (PF) (SUBLIMAZE) injection 25 mcg 25 mcg, Intravenous, EVERY 5 MIN PRN, Starting on Fri09/24/21 at 0648, Until Fri09/24/21 at 1047, Other, PACU only, Every 5 - 15 minutes prn to a maximum of 200 mcg if Stopbang score 3 or less. Maximum of 100 mcg for Stopbang score of 4 or more., PACU (I & II) glycopyrrolate (ROBINUL) injection 0.2 mg 0.2 mg, Intravenous, EVERY 5 MIN PRN, 2 doses, Starting on Fri09/24/21 at 0648, Until Fri09/24/21 at 1047, PRN heart rate <40, May repeat one time after 5 minutes., PACU (I & II) lidocaine-EPINEPHrine 1 %-1:373374 injection ONCE (in OR), Starting on Fri09/24/21 at 0756, Until Fri09/24/21 at 0808, INTRA-OP Given 09/24/2021 7:56 AM CDT 4.5 mL Operative Site midazolam (VERSED) injection 1-2 mg 1-2 mg, Intravenous, EVERY 5 MIN PRN, Starting on Fri09/24/21 at 0648, Until Fri09/24/21 at 0947, Anxiety, Maximum 10mg, Max 10 mg. Continuous pulse oximeter. Call for sat <92%. PreOP only. Given 09/24/2021 7:05 AM CDT 2 mg naloxone (NARCAN) injection 0.04-0.4 mg 0.04-0.4 mg, Intravenous, ONCE PRN, 1 dose, Starting on Fri09/24/21 at 0648, Until Fri09/24/21 at 1047, Opioid Reversal, *Give PRN if respiratory rate less than 6-8/min (or as ordered on IV INJECTION WAX MOLDER/Peridural standing orders) AND sedation scale equals 4 (somnolent/difficult to arouse) AND pupils are pinpoint. *Stop opioid or sedative medication and maintain IV access. *Provide oxygen and ventilation as required. *Mix 9 mL of NS with 0.4 mg (1 mL) of naloxone (NARCAN) in 10-12 mL syringe. (Note: dilution is 0.04mg/mL). *Give an initial dose of 0.04 mg (1 mL of special dilution) to 0.08 mg (2 mL of special dilution), slow IV push and follow with 0.04 mg (1 mL of special dilution) every 2-3 minutes as needed. *Monitor patient's level of conciousness and vital signs until patient opens eyes and speaks. *Discontinue Narcan titration when patient is alert and RR is greater than 9/min. *Stay with patient and continue to monitor level of conciousness and respiratory status. *Encourage patient to take deep breaths. *Due to short effect of Narcan and long effect of opioid, patient may require another dose of Narcan in as early as 15-30 minutes. *Reassess for pain and notify physician responsible for analgesia for further orders. *Reassess for respiratory rate and sedation level. *Dispose of remaining Narcan and syringe., PACU (I & II) ondansetron (ZOFRAN) injection 4 mg 4 mg, Intravenous, ONCE PRN, 1 dose, Starting on Fri09/24/21 at 0648, Until Fri09/24/21 at 1047, Nausea - 1st line, First Line Antiemetic, PACU (I & II) sodium bicarbonate 8.4 % injection ONCE (in OR), Starting on Fri09/24/21 at 0756, Until Fri09/24/21 at 0808, INTRA-OP Given 09/24/2021 7:56 AM CDT 0.5 mEq Operative Site documented in this encounter Active and Recently Administered Medications Times are shown in CDT. Scheduled Medication Order 09/22/2021 09/23/2021 09/24/2021 acetaminophen (TYLENOL) tablet 1,000 mg (COMPLETED) 1,000 mg, Oral, ONCE, 1 dose, On Fri09/24/21 at 0730, Maximum dose of acetaminophen is 4000 mg from all sources in 24 hours., PRE-OP (SURGERY) 0705 (Given - Provid er: Maricruz Lyons RN) ceFAZolin (ANCEF) 3 g in sodium chloride 0.9 % 100 mL IVPB (COMPLETED) 3 g, Intravenous, ONCE, 1 dose, On Fri09/24/21 at 0800, Administer over 30 Minutes, PRE-OP (SURGERY), Indications: Perioperative Pharmacoprophylaxis, at 200 mL/hr 0740 (New Bag - Prov ider: Jermain Chaudhari APRN, JOHNY)0810 (Anesthesia Stopped - Provider: Jermain Chaudhari APRN, JOHNY) Continuous Medication Order 09/22/2021 09/23/2021 09/24/2021 electrolyte-R (NORMOSOL-R) solution 1,000 mL 1,000 mL, Intravenous, CONTINUOUS, Starting on Fri09/24/21 at 0700, Until Fri09/24/21 at 1047, PRE-OP (SURGERY) 0650 (New Bag - Prov ider: Maricruz Lyons, RN)0835 (Stopped - Provider: Lizzette Marc RN) PRN Medication Order 09/22/2021 09/23/2021 09/24/2021 acetaminophen (TYLENOL) tablet 500 mg 500 mg, Oral, ONCE PRN, 1 dose, Starting on Fri09/24/21 at 0648, Until Fri09/24/21 at 1047, Other, if not given pre-op. Hold for history of liver failure., Maximum dose of acetaminophen is 4000 mg from all sources in 24 hours., PACU (I & II) dexamethasone (DECADRON) injection 8 mg 8 mg, Intravenous, ONCE PRN, 1 dose, Starting on Fri09/24/21 at 0648, Until Fri09/24/21 at 1047, Third Line Antiemetic Give if nausea/vomiting recurs after 2nd line therapy., PACU (I & II), Nausea third line fentaNYL (PF) (SUBLIMAZE) injection 25 mcg 25 mcg, Intravenous, EVERY 5 MIN PRN, Starting on Fri09/24/21 at 0648, Until Fri09/24/21 at 1047, Other, PACU only, Every 5 - 15 minutes prn to a maximum of 200 mcg if Stopbang score 3 or less. Maximum of 100 mcg for Stopbang score of 4 or more., PACU (I & II) glycopyrrolate (ROBINUL) injection 0.2 mg 0.2 mg, Intravenous, EVERY 5 MIN PRN, 2 doses, Starting on Fri09/24/21 at 0648, Until Fri09/24/21 at 1047, PRN heart rate <40, May repeat one time after 5 minutes., PACU (I & II) lidocaine-EPINEPHrine 1 %-1:422628 injection (CANCELED) ONCE (in OR), Starting on Fri09/24/21 at 0756, Until Fri09/24/21 at 0808, INTRA-OP 0756 (Given - Provid er: Shilo Valdes MD - Comment: MIXED WITH 8.4% SODIUM BICARBONATE) midazolam (VERSED) injection 1-2 mg 1-2 mg, Intravenous, EVERY 5 MIN PRN, Starting on Fri09/24/21 at 0648, Until Fri09/24/21 at 0947, Anxiety, Maximum 10mg, Max 10 mg. Continuous pulse oximeter. Call for sat <92%. PreOP only. 07 (Given - Provid er: Maricruz Lyons RN) naloxone (NARCAN) injection 0.04-0.4 mg 0.04-0.4 mg, Intravenous, ONCE PRN, 1 dose, Starting on Fri09/24/21 at 0648, Until Fri09/24/21 at 1047, Opioid Reversal, *Give PRN if respiratory rate less than 6-8/min (or as ordered on IV INJECTION WAX MOLDER/Peridural standing orders) AND sedation scale equals 4 (somnolent/difficult to arouse) AND pupils are pinpoint. *Stop opioid or sedative medication and maintain IV access. *Provide oxygen and ventilation as required. *Mix 9 mL of NS with 0.4 mg (1 mL) of naloxone (NARCAN) in 10-12 mL syringe. (Note: dilution is 0.04mg/mL). *Give an initial dose of 0.04 mg (1 mL of special dilution) to 0.08 mg (2 mL of special dilution), slow IV push and follow with 0.04 mg (1 mL of special dilution) every 2-3 minutes as needed. *Monitor patient's level of conciousness and vital signs until patient opens eyes and speaks. *Discontinue Narcan titration when patient is alert and RR is greater than 9/min. *Stay with patient and continue to monitor level of conciousness and respiratory status. *Encourage patient to take deep breaths. *Due to short effect of Narcan and long effect of opioid, patient may require another dose of Narcan in as early as 15-30 minutes. *Reassess for pain and notify physician responsible for analgesia for further orders. *Reassess for respiratory rate and sedation level. *Dispose of remaining Narcan and syringe., PACU (I & II) ondansetron (ZOFRAN) injection 4 mg 4 mg, Intravenous, ONCE PRN, 1 dose, Starting on Fri09/24/21 at 0648, Until Fri09/24/21 at 1047, Nausea - 1st line, First Line Antiemetic, PACU (I & II) sodium bicarbonate 8.4 % injection (CANCELED) ONCE (in OR), Starting on Fri09/24/21 at 0756, Until Fri09/24/21 at 0808, INTRA-OP 0756 (Given - Provid er: Shilo Valdes MD - Comment: MIXED WITH 1% LIDOCAINE WITH EPI 1:100,000) documented in this encounter Care Teams Apple Sorter Relationship Specialty Start Date End Date Jeremiah Jean MD [address] [id number] PCP - General Pediatrics 09/24/21 documented as of this encounter
--- OUTSIDE RECORDS SUMMARY | 2024-03-01 03:04 | XMS_ITS | Clinical Summary ---
Author Organization [facility] Address [address] [place] [address] Phone Care Team Providers Care Clinical Assistant Name Role Phone Jeremiah Jean MD Primary Care Provider [phone] Allergies No known active allergies Medications amitriptyline (ELAVIL) 50 MG Tablet Take 50 mg by mouth nightly as needed. Active ergocalciferol (VITAMIN D) 75883 UNIT CapsuleIndicat ions:Vitamin D Deficiency Take 50,000 Units by mouth once a week. Indications: Vitamin D Deficiency Active Norgestimate-e thinyl estradiol (Estarylla) 0.25-35 MG-MCG Tablet Take 1 Tablet by mouth daily. Active SUMAtriptan (IMITREX) 100 MG Tablet Take 100 mg by mouth daily as needed for Migraine. Use as directed. May repeat dose in 2 hours if headache recurs. Active cetirizine (ZyrTEC) 10 MG Tablet Take 10 mg by mouth daily as needed. Active acetaminophen (TYLENOL) 500 MG Tablet Take 1 Tablet by mouth every 6 hours as needed for Fever (for temperature greater than 100.4 F.). Do not exceed 4000 mg of acetaminophen in 24 hour from all sources. 0 2 Active ibuprofen (MOTRIN) 600 MG Tablet Take 1 Tablet by mouth every 6 hours as needed for Mild or more severe pain (for temperature greater than 100.4 F.). 30 Tablet 2 Active Active Problems Problem Noted Date Diagnosed Date Lesion of lip 09/24/2021 Social History Tobacco Use Types Packs/Day Years [...] Mass Index 46.52 09/21/2021 4:00 PM CDT Plan of Treatment Not on file Insurance [place] Member Subscriber Plan / Payer (Ef fective 2021-Present) Name:Lorena Reese Relation to Subscriber:Self Name:Lorena Reese Payer ID:[id number] Group ID:Not on file Type:Not on file Address: [address] Care Teams Clinical Assistant Relationship Specialty Start Date End Date Jeremiah Jean MD [address] [place] [address] PCP - General Pediatrics 09/24/21
--- OUTSIDE RECORDS SUMMARY | 2024-03-01 03:04 | XMS_ITS ---
Author Organization [facility] Address [address] [place] [id number] Care Team Providers Care Director Of Market Intelligence Name Role Phone Crews, Lelia Primary Care Provider [phone] Dill[place], Pushpa Unavailable [phone] Allergies No Known Allergies Results Component Value Reference Range Notes X ray : KUB (Kidneys, Ureter s, and Bladder) Reviewed date:12/11/2023 04:54:54 PM Interpretation:Normal Performing Lab: Notes/Report: Normal REASON FOR VISIT sinus/stomach issues- constipation x1 month she tried milk of mag and elax on and off with little relief., sinus drainage x1 week, she was seen at urgent care last week and has completed a zpack ., Latrice High RN, BMI Counseling Adult Above Normal BMI UDS Social History Tobacco Use: Social History Observation Description Date Details (start date - stop date) Never Smoker NA - NA Sex Assigned At : Social History Observation Description Sex Assigned At Female Drugs Question Answer Notes Have you used drugs other th an those for medical reasons in the past 12 months? No Have you ever had an STD Question Answer Notes Have you ever had an STD No Tobacco Control (Standard) Question Answer Notes Tobacco use: Nonsmoker AUDIT-C (Standard) Question Answer Notes Did you have a drink containing alcohol in the p ast year? No Points 0 Interpretation Negative Problems Problem Type SNOMED Code ICD Code Onset Dates Problem Status W/U Status Risk Notes Problem Overweight (280078406) Overweight (E66.3) Active confirmed Problem 716622531 Acute constipation (K59.00) Active confirmed Vital Signs Temperature 98.2 degrees Fahrenheit 12/10/19 24 Blood pressure systolic 140 mm Hg 12/10/19 24 Blood pressure diastolic 70 mm Hg 024 Heart Rate 114 /min 12/10/2023 Respiratory Rate 20 /min 12/10/2023 Height 66 in 12/10/2023 Weight 331 lbs 12/10/2023 BMI 53.42 kg/m2 12/10/2023 Oximetry 99 12/10/2023 Weight-kg 150.14 Kg 12/10/2023 Height-cm 167.64 cm 12/10/2023 Encounters Encounter Location Date Provider Diagnosis [facility] [place] [address] [facility] [address], [place] [id number] 12/10/2023 Pushpa Grimaldo Abdominal discomfort R10.9 ; Acute constipation K59.00 and Sinus drainage J34.89 Assessments Encounter Date Diagnosis (ICD Code) Assessment Notes Treatment Notes Treatment Clinical Notes Section Notes 12/10/2023 Abdominal discomfort (ICD-10 - R10.9) 12/10/2023 Acute constipation (ICD-10 - K59.00) Increase dietry fiber. Recommend OTC MiraLax BID and stool softeners daily. 12/10/2023 Sinus drainage (ICD-10 - J34.89) Recommend OTC Mucinex for cough and congestion. 12/10/2023 Other Plan Of Treatment Treatment Notes Assessment Notes Acute constipation Increase dietry fiber. Recommend OTC MiraLax BID and stool softeners daily. Sinus drainage Recommend OTC Mucine x for cough and congestion. Next Appt Details Follow Up: 1 Week, Reason: f /u on constipation and needs to est. Progress Notes * Ramses ESCALANTEB:2000 (23 yo F)Acc No.[id number]:12/10/2023 FaceToFace Patient:?Lorena ESCALANTE Provider:?Pushpa Grimaldo APRN Case Label:?Date Of Injur y: :2000???Age:23 Y???Sex:Female D ate:12/10/2023 Address:[address] [place], [place] [id number] Pcp:Lelia Apple Patient's Default Facility:[facility] Check In:12:14 PM CSTCheck O ut:01:22 PM REGULATORY LEAD Subjective: * Chief Complaints: * ???Sinus/stomach issues- con stipation x1 month she tried milk of mag and elax on and off with little relief.Sinus drainage x1 week, she was seen at urgent care last week and has completed a zpack .Latrice High RNBMI Counseling Adult Above Normal BMI UDS * HPI: ???Constitutional:? 23 y/o WF presents to the clinic today with c/o sinus drainage x 1 week. She was seen at urgent care last week and has completed a Z-pack and received a steriod shot. She is not taking any OTC medication. She also reports constipation x 1 month. Reports trying MOM and Ex-Lax w/ little relief. Last BM was this morning and was very loose. When not loose reports small hard pellets. Continues to have cramping and feels bloated. Reports drinking lots of water. She is trying to do Keto and denies eating appropriate amount of fruits and veggies. Denies n/v, fever/chills. * ROS:?General/Constitutional:?General?see hpi.? * Medical History:? * Surgical History:?Denies Pas t Surgical History * Hospitalization/Major Diagno stic Procedure:?Denies Past Hospitalization * Family History:?No Family Hi story documented..? * Social History:?Tobacco Use:?Tobacco Control (Standard)?Tobacco use:?Nonsmoker.?Health Literacy Screening:?How confident are you at filling out medical forms by yourself??1. Extremely?Yes.?Sexual History:?Have you ever had an STD?Have you ever had an STD?No.?Adult Health Maintenance:?Tetanus?tetanus within the last 5 years?No,?Counseled?Yes,?Date Counseled?12/10/2023.?Dental Visit Yearly?Dental Visit Yearly?Yes.?Health Maintenance?Completed?12/10/2023.?Learning Needs Assessment:?Learn Best By?Verbal?Yes,?Written?Yes,?Demonstration?Yes.?Communication Needs:?Communication Needs?Difficulty Hearing?No,?Difficulty with Vision?No,?Difficulty with Reading or Writing?No,?Does the patient speak Serbian??Yes.?Pre-visit Preparation:?Did you do a team huddle?Did you do a team huddle?Yes.?Family History:?Substance Abuse?Is there a family history of substance abuse?No.?Mental illness?Is there a family history of mental illness?No.?Drug/Alcohol:?Drugs?Have you used drugs other than those for medical reasons in the past 12 months??No.?AUDIT-C (Standard)?Did you have a drink containing alcohol in the past year??No,?Points?0,?Interpretation?Negative.?Household:?Household?Marital Status:?Single,?Number of Adults in Household:?1.? * Medications:?None * Allergies:?N.K.D.A.no[Allerg ies Verified] Objective: * Vitals:?Wt: 331 lbs, Wt Kgs: 150.14 Kg, Ht: 66 in, Ht cms: 167.64 cm, BMI:53.42Index, BP:140/70mm Hg, HR: 114 /min, Temp: 98.2 F, RR: 20 /min, Pain scale: 5, Oxygen sat %: 99. * Examination: ???General Examination: ?GENERAL APPEARANCE:?NAD, Appears Well, Appears Stated age.?HEENT?NC/AT, PERRL, EOMI, Sclera clear bilaterally, No rhinorrhea, TM clear bilaterally with patent canals, OP clear, MMM.?NECK/THYROID:?no lymphadenopathy.?CARDIOVASCULAR:?normal S1S2, regular rate and rhythm, no murmurs, click or rubs.?RESPIRATORY?clear to auscultation bilaterally, no wheezes, rhonchi, rales, normal resp effort.?GASTROINTESTINAL?no masses palpated, soft, non-tender, no organomegaly, hypoactive bowel sounds.?NEUROLOGIC EXAM:?alert and oriented x 3, CN's normal as tested.?Skin?moist, warm, no rash or skin lesions.?PERIPHERAL PULSES:?normal (2+) bilaterally.? Assessment: * Assessment: 1.?Acute constipation - K59. 00 (Primary)???2.?Abdominal discomfort - R10.9???3.?Sinus drainage - J34.89??? Plan: * Treatment: 2.?Abdominal discomfort?Imaging: X ray : KUB (Kidneys, Ureters, and Bladder) (Performed Date - 12/10/2023)?Normal * 3.?Sinus drainage? Notes: Recommend OTC Mucinex for cough and congestion.?? * Procedure Codes:?61346 X-RAY EXAM ABDOMEN 1 VIEW * Preventive Medicine:? ??Counseling:?Care goal follow up plan?BMI management provided?Yes,?Dietary Counseling Provided?Yes,?Above Normal BMI Follow-up?Giving encouragement to exercise, Lifestyle education regarding diet, Weight loss from baseline weight.? * Follow Up:?1 Week (Reason: f /u on constipation and needs to est.) Care Plan: * Problems:? * Billing Information: * Visit Code:? 81436 Office Visit, Est Pt., Level 3. * Procedure Codes:? 10996 X-RAY EXAM ABDOMEN 1 VIEW. * Sign off status: Completed true * Provider:?Pushpa Grimaldo APRN Date:?11/2023 Generated for Sandy sanchez/Chase/eTearnestitting on:?03/01/2024 03:04 AM REGULATORY LEAD History and Physical Notes * HPI (History of Present Illness) Category Sub-Category Detail Notes Category Not es Constitutional 23 y/o WF presents to the clinic today with c/o sinus drainage x 1 week. She was seen at urgent care last week and has completed a Z-pack and received a steriod shot. She is not taking any OTC medication. She also reports constipation x 1 month. Reports trying MOM and Ex-Lax w/ little relief. Last BM was this morning and was very loose. When not loose reports small hard pellets. Continues to have cramping and feels bloated. Reports drinking lots of water. She is trying to do Keto and denies eating appropriate amount of fruits and veggies. Denies n/v, fever/chills. Examination Category Sub-Category Detail Notes Category Not es General Examination HEENT NC/AT, PERRL , EOMI, Sclera clear bilaterally, No rhinorrhea, TM clear bilaterally with patent canals, OP clear, MMM NECK/THYROID: no lymphadenopathy CARDIOVASCULAR: normal S1S2, regular rate and rhythm, no murmurs, click or rubs RESPIRATORY clear to auscultatio n bilaterally, no wheezes, rhonchi, rales, normal resp effort GASTROINTESTINAL no masses palpated, soft, non-tender, no organomegaly, hypoactive bowel sounds GENERAL APPEARANCE: NAD, Appears Well, A ppears Stated age Skin moist, warm, no rash or skin lesions NEUROLOGIC EXAM: alert and oriented x 3, CN's normal as tested PERIPHERAL PULSES: normal (2+) bilatera lly
--- OUTSIDE RECORDS SUMMARY | 2024-03-01 03:04 | XMS_ITS | Encounter Summary ---
Author Organization [facility] Address [address] [place] [address] Care Team Providers Care Orchard Worker Name Role Phone Jeremiah Jean MD Primary Care Provider [phone]- [phone] Encounter Details Date Type Department Care Team (Late st Contact Info) Description 04/19/2019 3:10 PM COLLATERAL SPECIALIST - 04/19/2019 11:59 PM COLLATERAL SPECIALIST Hospital Encounter [facility] Pediatrics - Lab [address] [place] [address] Jeremiah Jean MD [address] [place] [phone] Discharge Disposition: Home or Self Care Social History Tobacco Use Types Packs/Day Years Used Date Smoking Tobacco: Passive Smo ke Exposure - Never Smoker Smokeless Tobacco: Never Sex and Gender Information Value Date Recorded Sex Assigned at Not on file Gender Identity Not on file Sexual Orientation Not on file documented as of this encounter Medications at Time of Discharge Medication Sig Dispensed Refills Start Date End Date naproxen (NAPROSYN) 500 MG tablet Take 1 tablet by mouth every 48 hours as needed for Pain 20 tablet 4 03/26/2019 riboflavin 100 MG tablet Take 4 tablets by mouth once daily 30 tablet 5 03/26/2019 documented as of this encounter Plan of Treatment Not on file documented as of this encounter Procedures Procedure Name Priority Date/Time Associated Diagnosis Comments VITAMIN D 25-HYDROXY Routine 04/19/2019 3:11 PM COLLATERAL SPECIALIST Restless legs syndrome (RLS) FERRITIN Routine 04/19/2019 3:11 PM COLLATERAL SPECIALIST Restless legs syndrome (RLS) documented in this encounter Results * FERRITIN (04/19/2019 3:11 PM COLLATERAL SPECIALIST) [facility] Ferritin 10 10 - 120 ng/mL 04/19/2019 5:35 PM COLLATERAL SPECIALIST [facility] Blood BLOOD SPECIMEN / Unknown Lab Venipuncture / Unknown 04/19/2019 3:11 PM COLLATERAL SPECIALIST 04/19/2019 3:23 PM COLLATERAL SPECIALIST Cristina Lucas MARSHMALLOW MACHINE WORKER-TANK WAGON OPERATOR LAB - CHEMISTR Y ORDERABLES Performing Organization Address [facility] de Phone Number [facility] [address] [place] [address] * (ABNORMAL) VITAMIN D (25-HYDROXY) (04/19/2019 3:11 PM COLLATERAL SPECIALIST) [facility] Vitamin D, 25 Hydroxy 19.1(L) 20 - 100 ng/mL 04/19/2019 5:35 PM COLLATERAL SPECIALIST [facility] Blood BLOOD SPECIMEN / Unknown Lab Venipuncture / Unknown 04/19/2019 3:11 PM COLLATERAL SPECIALIST 04/19/2019 3:23 PM COLLATERAL SPECIALIST Narrative [facility] - 04/19/2019 5:35 PM COLLATERAL SPECIALIST Vitamin D Status: ?Deficient ? <10 ?? ng/mL ? Borderline ?10-20 ng/mL ?Sufficient ?>20 ?? ng/mL ?Toxic ? >100 ??ng/mL Cristina Lucas MARSHMALLOW MACHINE WORKER-TANK WAGON OPERATOR LAB - CHEMISTR Y ORDERABLES Performing Organization Address [facility] de Phone Number [facility] [address] [place] [address] documented in this encounter Visit Diagnoses Diagnosis Restless legs syndrome (RLS) documented in this encounter Care Teams Orchard Worker Relationship Specialty Start Date End Date Jeremiah Jean MD [address] [place] [phone] PCP - General Family Medicine 02/16/19 documented as of this encounter
--- OUTSIDE RECORDS SUMMARY | 2024-03-01 03:04 | XMS_ITS | Encounter Summary ---
Author Organization [facility] Address [address] [place] [address] Care Team Providers Care Registered Pharmacist Name Role Phone Jeremiah Jean MD Primary Care Provider [phone]- [phone] Reason for Referral * Evaluate (Routine) - Closed Specialty Diagnoses / Procedures Referred By Roel beauchamp Referred To Contact Sleep Center Diagnoses Insomnia, unspecified type Deepika Nicholson MD [address] [place] [address] [facility] [address] [place] [phone] Referral ID Status Reason Start Date Expiration Date V isits Requested Visits Authorized [id number] Closed Specialty Services Required 03/26/2019 09/22/2019 1 1 Scheduling Instructions If you have not been contacted by an [facility] Oil Changer within 48 hours, please call [phone] to schedule an appointment. Interrupted sleep, unknown reson TIE CENTRALIZING MACHINE OPERATOR Reason for Visit * Reason Comments Sleep Problem Hard to fall asleep, frequent headaches, wakes up a couple times throughout the night * Evaluate (Routine) - Closed Specialty Diagnoses / Procedures Referred By Roel beauchamp Referred To Contact Sleep Center Diagnoses Insomnia, unspecified type Deepika Nicholson MD [address] [place] [address] [facility] [address] [place] [phone] Referral ID Status Reason Start Date Expiration Date V isits Requested Visits Authorized [id number] Closed Specialty Services Required 03/26/2019 09/22/2019 1 1 Encounter Details Date Type Department Care Team (Latest Contact Info) Description 04/19/2019 1:57 PM NECKTIE CENTRALIZING MACHINE OPERATOR - 04/19/2019 3:09 PM NECKTIE CENTRALIZING MACHINE OPERATOR Hospital Encounter [facility] - Sleep [address] [place] [address] Cristina Lucas APRN-CNP [address] [place] [address] Discharge Disposition: Home or Self Care Social History Tobacco Use Types Packs/Day Years Used Date Smoking Tobacco: Passive Smo ke Exposure - Never Smoker Smokeless Tobacco: Never Sex and Gender Information Value Date Recorded Sex Assigned at Not on file Gender Identity Not on file Sexual Orientation Not on file documented as of this encounter Last Filed Vital Signs Vital Sign Reading Time Taken Comments Blood Pressure 110/62 04/19/2019 2:21 PM NECKTIE CENTRALIZING MACHINE OPERATOR Pulse 75 04/19/2019 2:21 PM NECKTIE CENTRALIZING MACHINE OPERATOR Temperature - - Respiratory Rate - - Oxygen Saturation 98% 04/19/2019 2:21 PM NECKTIE CENTRALIZING MACHINE OPERATOR Inhaled Oxygen Concentration - - Weight 120.2 kg (264 lb 15. 9 oz) 04/19/2019 2:21 PM NECKTIE CENTRALIZING MACHINE OPERATOR Height 166.5 cm (5' 5.55 ) 04/19/2019 2:21 PM CS T Body Mass Index 43.36 04/19/2019 2:21 PM NECKTIE CENTRALIZING MACHINE OPERATOR Body Mass Index Percentile 99.82% 04/19/2019 2:2 1 PM NECKTIE CENTRALIZING MACHINE OPERATOR Growth Chart: CDC (Girls, 2- 20 Years) documented in this encounter Discharge Instructions * Patient Instructions* Cristina Lucas APRN-CNP - 04/19/2019 2:00 PM NECKTIE CENTRALIZING MACHINE OPERATOR 1. Labs today (Serum ferritin and Vitamin D). 2. Lorena will start iron for ferritin < 80 and Vitamin D for level < 30. 3. Limit screen use 2 hours before bedtime. 4. No screens in the bedroom. Please call our nurse's line with any questions. ([phone], opt 3) TIE CENTRALIZING MACHINE OPERATOR documented in this encounter Medications at Time of Discharge Medication Sig Dispensed Refills Start Date End Date naproxen (NAPROSYN) 500 MG tablet Take 1 tablet by mouth every 48 hours as needed for Pain 20 tablet 4 03/26/2019 riboflavin 100 MG tablet Take 4 tablets by mouth once daily 30 tablet 5 03/26/2019 documented as of this encounter Progress Notes * Cristina Lucas APRN-CHARGING CAR OPERATOR - 04/19/2019 2:00 PM CST New Patient Visit Note Pediatric Sleep Medicine [facility] Chief Complaint Patient presents with ??? Sleep Problem Hard to fall asleep, frequent headaches, wakes up a couple times throughout the night HPI: Lorena Escalante is a 18 year old female who presents to the Pediatric Sleep Disorders Clinic at [facility] on 04/19/2019 for evaluation of difficulty falling asleep and headaches. She was accompanied by her mother who assisted in providing the history. She was referred by Dr. Deepika Nicholson. I have personally reviewed her records. Lorena has had difficulty with sleep onset and maintenance for the past few years. Lorena does not snore. There are no pauses in breathing, gasping, choking, diaphoresis, or drooling noted during sleep. She frequently wakes up with headaches. She is3 difficult to awaken in the morning is sleepy throughout the day. She does fall asleep at school. She does not take naps. She has nocturnal enuresis 0 nights per week. No previous polysomnogram. Lorena complains of urges to move her legs and tingles 1-2 nights per week. Sensations is relieved with movement and worsned with lying still. There are no sleep terrors, nightmares, sleep talking or sleep walking. Weekday Bedtime: 1030 PM Weekday Wake time: 645 AM Weekend Bedtime: 1030 PM Weekend Wake time: 7-9 AM Sleep Latency: 5-60 minutes Nighttime awakenings: 1-4 times per night Sleep onset after wake: 1-30 minutes Sleep environment: In her own bedroom, in his own bed. Accessible screens include: TV, tablet and phone- they are used at bedtime Bedtime routine: dinner, TV, homework, relaxing, brush teeth, pajamas, phone an lights out Naps: none Caffeine intake: rarely Review of Systems: Psychological ROS: negative Ophthalmic ROS: negative ENT ROS: negative Allergy and Immunology ROS: negative Respiratory ROS: negative Cardiovascular ROS: negative Gastrointestinal ROS: negative Urinary ROS: negative Musculoskeletal ROS: negative Neurological ROS: negative Dermatological ROS: negative Thibodaux Sleepiness Scale: Sitting and Reading moderate chance of dozing Watching TV slight chance of dozing Sitting, inactive in a public place would never doze Car passenger for an hour high chance of dozing Lying down to rest in afternoon high chance of dozing Sitting and Talking would never doze Sitting Quietly after lunch would never doze While playing a video game would never doze Total Dozing Score 9 Past Surgical History: Procedure Laterality Date ??? NEGATIVE SURGICAL HISTORY Past Medical History: Diagnosis Date ??? Medical history reviewed with no changes FAMILY HISTORY OF SLEEP DISORDERS: none known SOCIAL HISTORY: Lorena lives at home with mother, father and one sister. There is passive smoke exposure. She is in the 11th grade and receives straight A grades. she does not get in trouble at school. No Known Allergies Current Outpatient Medications Ordered in [facility] Medication Sig Dispense Refill ??? naproxen (NAPROSYN) 500 MG tablet Take 1 tablet by mouth every 48 hours as needed for Pain 20 tablet 4 ??? riboflavin 100 MG tablet Take 4 tablets by mouth once daily 30 tablet 5 No current [facility]-ordered facility-administered medications on file. Exam: Height: 166.5 cm (5' 5.55 ) Weight: 120.2 kg (264 lb 15.9 oz) Vitals: 04/19/19 1421 BP: 110/62 Pulse: 75 SpO2: 98% Weight: 120.2 kg (264 lb 15.9 oz) Height: 1.665 m (5' 5.55 ) Constitutional: no retractions or cyanosis Psych: normal affect Head and Face: no lesions or masses; facies symmetrical Eyes: sclera and conjunctiva clear Ears: Inspection: normal pinnae shape and position Nasal: normal external nose, mucous membranes and septum Oral Cavity: moist mucous membranes; normal uvula, palate and tongue size Throat: tonsil 2+ Mallampati 1 Neck: supple without tenderness or crepitus; no palpable adenopathy Heart: normal rate and rhythm Respiration: unlabored breathing GI: abdomen soft and flat Skin: skin healthy Impression/Plan: Restless Legs Syndrome: I reviewed the diagnosis, etiology and treatment of RLS at length with mother. Restless legs syndrome is caused by a defect in the dopamine pathway, either with decreased production, incorrect production, or failed transport across the blood-brain barrier. Iron is a necessary cofactor for dopamine production. Serum ferritin checked today. Ferrous sulfate to be started for ferritin < 80. Additionally, a vitamin D level was checked. Goal Vitamin D > 30. Chronic Insomnia: Insomnia likely secondary to RLS and poor sleep hygiene. Restlessness to be treated as outlined above. We discussed the importance of keeping bed times and wake up times the same 7 days per week and limiting screen time 1-2 hours before bed. Circadian rhythms depend highly on social and environmental cues, especially light-dark cycles. Patient Instructions 1. Labs today (Serum ferritin and Vitamin D). 2. Lorena will start iron for ferritin < 80 and Vitamin D for level < 30. 3. Limit screen use 2 hours before bedtime. 4. No screens in the bedroom. Please call our nurse's line with any questions. ([phone], opt 3) Return in about 3 months (around 07/18/2019). Thank you for allowing me to participate in the care of your patient. Please call me with any questions at [phone]. [facility] TIE CENTRALIZING MACHINE OPERATOR documented in this encounter Plan of Treatment Scheduled Referrals Name Type Priority Associated Diagnoses Orde r Schedule Amb Pediatric Referral To Sleep Clinic @ ([facility] Direct) Outpatient Referral Routine Insomnia, unspecified type 1 Occurrences starting 04/19/2019 until 04/19/2019 documented as of this encounter Results * (ABNORMAL) VITAMIN D (25-HYDROXY) (04/19/2019 3:11 PM NECKTIE CENTRALIZING MACHINE OPERATOR) Vitamin D, 25 Hydroxy 19.1(L) 20 - 100 ng/mL 04/19/2019 5:35 PM NECKTIE CENTRALIZING MACHINE OPERATOR [facility] Blood BLOOD SPECIMEN / Unknown Lab Venipuncture / Unknown 04/19/2019 3:11 PM NECKTIE CENTRALIZING MACHINE OPERATOR 04/19/2019 3:23 PM NECKTIE CENTRALIZING MACHINE OPERATOR Narrative [facility] - 04/19/2019 5:35 PM NECKTIE CENTRALIZING MACHINE OPERATOR Vitamin D Status: ?Deficient ? <10 ?? ng/mL ? Borderline ?10-20 ng/mL ?Sufficient ?>20 ?? ng/mL ?Toxic ? >100 ??ng/mL Cristina Kat Steeleo AMBULANCE OFFICER-CHARGING CAR OPERATOR LAB - CHEMISTR Y ORDERABLES Performing Organization Address [facility] de Phone Number [facility] [address] [place] [address] * FERRITIN (04/19/2019 3:11 PM NECKTIE CENTRALIZING MACHINE OPERATOR) Ferritin 10 10 - 120 ng/mL 04/19/2019 5:35 PM NECKTIE CENTRALIZING MACHINE OPERATOR [facility] Blood BLOOD SPECIMEN / Unknown Lab Venipuncture / Unknown 04/19/2019 3:11 PM NECKTIE CENTRALIZING MACHINE OPERATOR 04/19/2019 3:23 PM NECKTIE CENTRALIZING MACHINE OPERATOR Cristina L Lance AMBULANCE OFFICER-CHARGING CAR OPERATOR LAB - CHEMISTR Y ORDERABLES Performing Organization Address [facility] de Phone Number [facility] [address] [place] [address] documented in this encounter Visit Diagnoses Diagnosis Restless legs syndrome (RLS)- Primary Insomnia, unspecified type documented in this encounter Care Teams Registered Pharmacist Relationship Specialty Start Date End Date Jeremiah Jean MD [address] [place] [phone] PCP - General Family Medicine 02/16/19 documented as of this encounter
--- OUTSIDE RECORDS SUMMARY | 2024-03-01 03:04 | XMS_ITS | Encounter Summary ---
Author Organization [employer] Care Team Providers Care Record Press Supervisor Name Role Phone Jeremiah Jean MD Primary Care Provider +- [phone] Encounter Details Date Type Department Care Team (Latest Contact Info) Description 09/24/2021 Travel Social History Tobacco Use Types Packs/Day [...] on filedocumented in this encounter Care Teams Record Press Supervisor Relationship Specialty Start Date End Date Jeremiah Jean MD [address] [place] [address] PCP - General Pediatrics 09/24/21 documented as of this encounter
--- OUTSIDE RECORDS SUMMARY | 2024-03-01 03:04 | XMS_ITS | Encounter Summary ---
Author Organization [facility] Address [address] [place] [address] Phone Care Team Providers Care Speeder Worker Name Role Phone Jeremiah Jean MD Primary Care Provider [phone] Encounter Details Date Type Department Care Team (Latest Contact Info) Description 09/24/2021 6:10 AM CDT - 09/24/2021 8:47 AM CDT Hospital Encounter DM PREOP/PACU II [address] [place] [address] Shilo Valdes MD [address] [facility] [address] [place] [address] Lesion of lip Discharge Disposition: Discharged to home or Selfcare Social History Tobacco Use Types Packs/Day Years [...] 09/21/2021 4:0 0 PM CDT Growth Chart: [facility] (Girls, 2- 20 Years) documented in this [...] CARE EXCELLENT SERVICE Thank you for trusting [facility] with your healthcare. Following your visit with [...] mouth daily as needed. ergocalciferol (VITAMIN D) 30400 UNIT CapsuleIndicatio ns:Vitamin D Deficiency Take 50,000 [...] Lorena Escalante (: 2000) CONTACT SERIAL NUMBER: [id number] PROVIDER: Shilo Valdes MD DATE OF PROCEDURE: 09/24/2021 ADMISSION DATE: 09/24/2021 SURGEON: Shilo Valdes MD EDUCATION FINANCE PROCESSOR(S): 1st Scrub: Enma Mayen CST-Risk Management Manager Primary Derrick Follower: Jennifer Merlos RN ANESTHESIA: Monitored Anesthesia Care, [...] have checked the information available via the [place] Prescription Monitoring Program Database for Lorena Escalante prior to prescribing a controlled substance. SHILO VALDES MD 09/24/2021 8:10 AM CDT documented in this encounter Miscellaneous Notes * Anesthesia Post-op Anupama Merchant MD - 09/24/2021 8:47 AM CDT [facility] Post Anesthesia Assessment: Date of Procedure: 09/24/2021 [...] Care Anesthesia Staff: Anesthesiologist: Ronny Henry MD PROPERTY MANAGEMENT ASSISTANT: Jermain Chaudhari APRN, CRNA EBL: 3 mL [...] score) may be included. * Anesthesia Post-op Eval - Jermain Chaudhari APRN, CRNA - 09/24/2021 8:06 AM CDT [...] Care Anesthesia Staff: Anesthesiologist: Ronny Henry MD PROPERTY MANAGEMENT ASSISTANT: Jermain Chaudhari APRN, CRNA EBL: 0 ml Report given to (name): Lizzette GUTIÉRREZ Patient care transferred to [facility] B/P: 130/65 Pulse rate: 77 Resp rate: 16 O2 Sat: 99 O2 Therapy: None Temperature: 97.2 Pain score on arrival: 0 Walter: Activity: 2 Respiration: 2 Circulation: 2 Consciousness: 2 Color: 2 Total Walter: 10 STOPBANG SCORE: 2 PQRS 426/427 TRANSFER OF CARE Was care transferred to PACU/SDS/ENDO/IR/OB/Floor/laborer aquatic life RN using transfer of care protocol listed [...] No immediate post anesthesia complications. Transfer protocol SDS/PACU/Endo/IR/Floor/OB/laborer aquatic life The colbert handoff elements that must be [...] Pedro MD - 09/24/2021 6:43 AM CDT [facility] ANESTHESIA PREOPERATIVE NOTE ADULT (>12yo) Procedure(s) (LRB): [...] Surgical History: Procedure Laterality Date ??? HC [facility] AR[place]REX [place] [id number] Right Social History Substance [...] mouth daily as needed. ergocalciferol (VITAMIN D) 02879 UNIT Capsule 09/21/2021 at Unknown time Yes [...] the patient seen pre-operatively/pre-procedure by an Anesthesiologist, PROPERTY MANAGEMENT ASSISTANT, or RNAI, PRIOR TO THE DAY OF [...] Sears RN - 09/21/2021 5:16 PM CDT [facility] Patient Name: Lorena Escalante : 2000 CSN#: [id number] Person Educated Parent Ready to Learn Yes [...] you to pre-operative area. 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 * Interdisciplinary - Deloris Sears RN - 09/21/2021 4:42 PM CDT Weight Reduction Specialist tried calling patient in PAS, no answer, [...] Case Report Surgical Pathology Report ? Case: [id number] ? Authorizing Provider: ??Shilo Valdes ?Collected: ? 09/24/2021 08:00 AM ? MD Aric ? Ordering Location: ? [facility] Main OR ?Received: ?09/24/2021 09:14 AM ? Pathologist: ? Satya Werner MD ? Specimen: ?Lip, LOWER LIP LESION ? 09/25/2021 12:25 PM T [facility] FINAL DIAGNOSIS Skin (lower lip), excision: Lobular capillary hemangioma (pyogenic granuloma) 09/25/2021 12:[address] 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 LOWER LIP LESION The specimen is labeled lower lip lesion and consists of a 0.6 x 0.5 x 0.4 cm rubbery, blue stained tissue fragment that is partially overlaid by wrinkled epithelium. The specimen is inked and bisected. All submitted. 09/25/2021 12:[address] [facility] Tissue LIP STRUCTURE / Unknown 09/24/2021 8:00 AM CDT 09/24/2021 9:14 AM CDT Shilo Valdes MD PATHOLOGY/CYTOLOGY ORDERABLES Final Result Performing Organization Address City/State/[facility] Co de Phone Number [facility] [address] [place] [address] documented in this encounter Visit Diagnoses Diagnosis Lesion of lip- Primary Diseases of lips Lesion of lip Diseases of lips documented in this encounter Administered Medications Inactive Administered Medications - up to 3 most recent administrations Medication Order MAR Action Action Date Dose Rate Site acetaminophen (TYLENOL) tablet 1,000 mg 1,000 mg, Oral, ONCE, 1 dose, On 09/24/21 at 0730, Maximum dose of acetaminophen is [...] PRE-OP (SURGERY), Indications: Perioperative Pharmacoprophylaxis, at 200 mL/hrIndications:Perioperative Pharmacoprophylaxis New Bag 09/24/2021 7:40 AM CDT [...] after 5 minutes., PACU (I & II) midazolam (VERSED) injection 1-2 mg 1-2 mg, [...] than 6-8/min (or as ordered on IV RIVER AND LAKES BOATMAN/Peridural standing orders) AND sedation scale equals 4 [...] First Line Antiemetic, PACU (I & II) documented in this encounter Active and Recently [...] 0650 (New Bag - Prov ider: Maricruz Lyons RN)0835 (Stopped - Provider: Lizzette Marc RN) [...] minutes., PACU (I & II) lidocaine-EPINEPHrine 1 %-1:[id number] injection (CANCELED) ONCE (in OR), Starting on [...] oximeter. Call for sat <92%. PreOP only. 0705 (Given - Provid er: Maricruz Lyons RN) naloxone (NARCAN) injection 0.04-0.4 mg 0.04-0.4 mg, Intravenous, ONCE PRN, 1 dose, Starting on Fri09/24/21 at 0648, Until Fri09/24/21 at 1047, Opioid Reversal, *Give PRN if respiratory rate less than 6-8/min (or as ordered on IV [employer] [place]ES BOATMAN/Peridural standing orders) AND sedation scale equals 4 [...] 1:100,000) documented in this encounter Care Teams Speeder Worker Relationship Specialty Start Date End Date Jeremiah Jean MD [address] [place] [address] PCP - General Pediatrics 09/24/21 documented as of this encounter
--- OUTSIDE RECORDS SUMMARY | 2024-03-01 03:04 | XMS_ITS ---
Author Organization [address] [place] [address] [facility] Address [address] [place] [id number] Care Team Providers Care Biologics Specialist Name Role Phone Lelia Apple Primary Care Provider [phone] REASON FOR VISIT EST-CARE, 1 week f/u constipation, No record on WebIZ Social History Sex Assigned At : Social History Observation Description Sex Assigned At Female Encounters Encounter Location Date Provider Diagnosis [address] [place] [address] [facility] [address] [place], [place] [id number] 12/17/2023 Lelia Apple Plan Of Treatment No Information Progress Notes * Ramses ESCALANTEB:2000 (23 yo F)Acc No.[id number]:12/17/2023 FaceToFace Patient:?Lorena ESCALANTE Provider:?Lelia Apple APRN Case Label:?Date Of Injur y: :2000???Age:23 Y???Sex:Female D ate:12/17/2023 Address:[address] [place], [place] [id number] Patient's Default Facility:[address] [place] [address] Subjective: * Chief Complaints: * ???1. EST-CARE, 1 week f/u c onstipation. 2. No record on WebIZ. * Medical History:? Objective: * Vitals:? Assessment: Plan: * Treatment: Care Plan: * Problems:? * Billing Information: * Visit Code:? * Procedure Codes:? * Electronic signature of Lyle Apple APRN-AALIYAH on 03/01/2024 at 03:04 AM PHARMACIST TECHNICIAN Sign off status: Pending * Provider:?Lelia Apple APRN Date:? Generated for Sandy sanchez/Chase/Adis on:?03/01/2024 03:04 AM PHARMACIST TECHNICIAN
--- OUTSIDE RECORDS SUMMARY | 2024-03-01 03:04 | XMS_ITS | Encounter Summary ---
Author Organization [facility] Address [address] [place] [address] Phone Care Team Providers Care Sales Operations Lead Name Role Phone Jeremiah Jean MD Primary Care Provider [phone] Encounter Details Date Type Department Care Team (Latest Contact Info) Description 09/21/2021 Transcribe Orders [facility] PREOP/PACU II [address] [place] [address] Renard Zhao MD [address] [facility] [address] [place] [address] Pre-op testing (Primary Dx) Social History Tobacco Use Types Packs/Day Years [...] as of this encounter Plan of Treatment Scheduled Orders Name Type Priority Associated Diagnoses Orde r Schedule HEMOGLOBIN & HEMATOCRIT (H&H) Lab STAT Pre-op testing Expected: 12/22/2021, Expires: 12/22/2021 documented as of this encounter Visit Diagnoses Diagnosis Pre-op testing- Primary Preoperative examination, unspecified documented in this encounter Care Teams Sales Operations Lead Relationship Specialty Start Date End Date Jeremiah Jean MD [address] [id number] PCP - General Pediatrics 09/24/21 documented as of this encounter
--- OUTSIDE RECORDS SUMMARY | 2024-03-01 03:04 | XMS_ITS | Encounter Summary ---
Author Organization [facility] Address [address] [facility] [place] [address] Care Team Providers Care Produce Production Team Member Name Role Phone Jeremiah Jean MD Primary Care Provider [phone] Reason for Referral * Evaluate (Routine) - Closed Specialty Diagnoses / Procedures Referred By Roel beauchamp Referred To Contact Sleep Center Diagnoses Insomnia, unspecified type Deepika Nicholson MD [address] [place] [address] [facility] [address] [place] [address] Referral ID Status Reason Start Date Expiration Date V isits Requested Visits Authorized [id number] Closed Specialty Services Required 03/26/2019 09/22/2019 1 1 Scheduling Instructions If you have not been contacted by an [facility] Way Inspector within 48 hours, please call [phone] to schedule an appointment. Interrupted sleep, unknown reson ER SPOTTER Reason for Visit * Reason Comments Headache Has been having head aches for approximately 2 years, occurs daily all day. Encounter Details Date Type Department Care Team (Latest Contact Info) Description 03/26/2019 12:32 PM TIMBER SPOTTER - 03/26/2019 11:59 PM TIMBER SPOTTER Hospital Encounter [facility] - Neurology [address] [place] [phone] Derek Gutierrez MD [address] [place] [address]. [address] [place] [address] Discharge Disposition: Home or Self Care Social History Tobacco Use Types Packs/Day Years Used Date Smoking Tobacco: Never Assessed Sex and Gender Information Value Date Recorded Sex Assigned at Not on file Gender Identity Not on file Sexual Orientation Not on file documented as of this encounter Last Filed Vital Signs Vital Sign Reading Time Taken Comments Blood Pressure 110/68 03/26/2019 12:39 PM TIMBER SPOTTER Pulse - - Temperature - - Respiratory Rate - - Oxygen Saturation - - Inhaled Oxygen Concentration - - Weight 119.7 kg (263 lb 14. 3 oz) 03/26/2019 12:39 PM TIMBER SPOTTER Height 166.1 cm (5' 5.39 ) 03/26/2019 1 2:39 PM TIMBER SPOTTER Body Mass Index 43.39 03/26/2019 12:39 PM TIMBER SPOTTER Body Mass Index Percentile 99.83% 03/26 12:39 PM TIMBER SPOTTER Growth Chart: [facility] (Girls, 2- 20 Years) documented in this encounter Discharge Instructions * Patient Instructions* Deepika Nicholson MD - 03/26/2019 1:47 PM TIMBER SPOTTER Thank you for your visit today You most likely having tension headaches We advice for modifying life styles that has been proven to help reducing headaches significantly -- Sleep 8 -10 hours a day -- Your body and brain needs carbs to function properly -- Drink a lot of water, to get a clear urine -- Avoid junk food -- Avoid caffeine, tea or soda -- Reduce screen time as much as possible. AAN recommend screen time maximum of 2 hours daily. -- Avoid stressors Modifiyin these life styles has been proved to help headache patients a lot. Should this does not help, will think of other treatment modalities Will prescribe Naproxen 500 mg take it on need with in 30 minutes of start of your headache. Do nottake more than 4 tablets a week. Will prescribe Riboflavin (Vit B2) 400 mg daily that can help your headache You will be referred to sleep specialist You will be referred to filenet architect Follow up in 4 months ER SPOTTER documented in this encounter Medications at Time of Discharge Medication Sig Dispensed Refills Start Date End Date naproxen (NAPROSYN) 500 MG tablet Take 1 tablet by mouth every 48 hours as needed for Pain 20 tablet 4 03/26/2019 riboflavin 100 MG tablet Take 4 tablets by mouth once daily 30 tablet 5 03/26/2019 documented as of this encounter Progress Notes * Deepika Nicholson MD - 03/26/2019 12:52 PM CST Images from the original note were not included. Pediatric Neurology Clinic new Visit Patient Name: Lorena Escalante : 2000 Date of Encounter: 03/26/2019 I had the pleasure of seeing your patient, Lorena in the Neurology Clinic at [facility]. She was accompanied by her Mother and Father. Lorena is a 18 year old female With No significant PMH was referred to the neurology clinic for complaints of headaches. . Interval History The pt reports that she started having headaches about 1 year ago. She has daily headaches, almost all the day time. It is dull ache, felt holocephalic, on average 2-10/10 in severity, mostly dull ache 4/10 in severity most of the time. Pt denies having nausea, vomiting, visual obscuration, or numbness or weakness during her headaches. She denies photophobia but mentions she has intolerance to surrounding noise when the headache is severe. She has been seen by her PCP who diagnosed with tensionheadaches vs migraine, started on Amitriptyline daily for about 1 month, this had helped her initially but then her headaches recurred so she stopped it. She has used Imitrex once and made her headache worse. She also had used Ibuprofen in the past with no benefit. She sleeps a lot lately. Goes to bed at 10:30 -11 PM, sometimes she sleeps immediately sometimes takes an hour to fall asleep. Wakes up 6:45. Wakes up during the night, generally 2-3 times, do not know why,. Sometimes can have headache when waking up, but mostly not. She snores, occasionally. Do not skip meals. Eats junk food, not recently, not much. Switched mainly to protein diet She drinks alot of water. She feels stressed out as she tries to keep her good lawrence at school, sheis the first at her class with straight As. She plays soft ball and tries to keep up at the level of competition. She does 4 days a week gym and on protein diet for weight loss. Screen time: 10 min each class, 7 classes a day. 5 hours aday on average. Her maternal grand mother has migraines. Her great grand mother had migraines and brain tumor. Mom said that Lorena has been told that she has one optic nerve larger than the other during routine eye check, she has no symptoms. Further eye exam including, retinal exam, visual acuity, and visual barry were normal. She follows with eye doctor regularly Past Medical History History: History ??? Delivery Method: Vaginal, Spontaneous ??? Gestation Age: 40 wks , Medical History: Past Medical History: Diagnosis Date ??? Medical history reviewed with no changes , Surgical History: Past Surgical History: Procedure Laterality Date ??? NEGATIVE SURGICAL HISTORY , Family history: Family History Problem Relation Name Age of Onset ??? Migraine Maternal Grandmother ??? Migraine Maternal Great-Grandmother ??? Brain Tumor Maternal Great-Grandmother and Social History: Social History Social History Narrative Lives with mom and dad, sister Current Medications ??? naproxen (NAPROSYN) 500 MG tablet Take 1 tablet by mouth every 48 hours as needed for Pain ??? riboflavin 100 MG tablet Take 4 tablets by mouth once daily Allergies No Known Allergies Review of Systems Review of Systems Constitutional: Negative. HENT: Negative. Eyes: Negative. Respiratory: Negative. Cardiovascular: Negative. Genitourinary: Negative. Musculoskeletal: Negative. Skin: Negative. Neurological: Positive for headaches. Endo/Heme/Allergies: Negative. Psychiatric/Behavioral: Negative. Vital Signs Height: Height: 166.1 cm (5' 5.39 ) Weight: Weight: 119.7 kg (263 lb 14.3 oz) >99 %ile (Z= 2.60) based on CDC (Girls, 2-20 Years) [id number] data using vitals from 02/11/2019 from contact on 03/24/2019. Blood Pressure: BP Readings from Last 1 Encounters: 03/26/19 110/68 (49 %, Z = -0.03 / 57 %, Z = 0.17)* *BP percentiles are based on the October 2016 AAP Clinical Practice Guideline for girls Head Circumference: No head circumference on file for this encounter. BP: 110/68 Blood pressure percentiles are 49 % systolic and 57 % diastolic based on the October 2016AAP Clinical Practice Guideline. Blood pressure percentile targets: 90: 124/78, 95: 128/82, 95 + 12mmH/94. Body mass index is 43.39 kg/m??. 70 %ile (Z= 0.52) based on CDC (Girls, 2-20 Years) [id number] data based on Stature recorded on 03/26/2019. >99 %ile (Z= 2.59) based on CDC (Girls, 2-20 Years) [id number] data using vitals from 03/26/2019. >99 %ile (Z= 2.49) based on CDC (Girls, 2-20 Years) BMI-for-age based on BMI available as of 03/26/2019. Labs No labs to be reviewed this visit Imaging No imaging to be reviewed this visit Physical Exam General appearance: Obese alert, well appearing, and in no distress. Mental Status: Awake, alert, appropriate Cranial Nerves: JESUS, EOMI, no ptosis, nystagmus or diplopia Facial sensation intact bilaterally; Face symmetric, palate symmetric Uvula and tongue midline. Fundus: normal optic discs bilaterally Motor: Abnormal Movements: none Bulk: normal Tone: normal Strength: RUE 5/5 LUE 5/5 RLE 5/5 LLE 5/5 DTR: Bi Tri BR Pat Ach Toes R 2 2 2 2 2 Down L 2 2 2 2 2 Down Sensory: Intact to light touch Cerebellar: FNF, and ANNA intact bilaterally, Romberg: negative Gait: Normal toe/heel/tandem walk Assessment and Plan ## Tension headaches ## Obesity ## Snoring, interrupted sleep Life style modification -- Sleep 8 -10 hours a day -- Your body and brain needs carbs to function properly -- Drink a lot of water, to get a clear urine -- Avoid junk food -- Avoid caffeine, tea or soda -- Reduce screen time as much as possible. AAN recommend screen time maximum of 2 hours daily. -- Avoid stressors - Modifying these life styles has been proved to help headache patients a lot. Should this does nothelp, will think of other treatment modalities like Topamax. - Will prescribe Naproxen 500 mg take it on need with in 30 minutes of start of the headache. Do not take more than 4 tablets a week. - Will prescribe Riboflavin (Vit B2) 400 mg daily that can help your headache - You will be referred to sleep specialist - You will be referred to filenet architect Follow up in 4 months Follow-Up Return in about 4 months (around 07/25/2019). Case discussed with pediatric neurology attending, Dr.Jamal Deepika Nicholson MD PGY-4 Adult Neurology Resident 03/26/2019 CC: Jeremiah Jean MD [address] [place] [id number] Date: 03/26/2019 3:52 PM ER SPOTTER Associated attestation - Derek Gutierrez MD - 03/26/2019 4:05 PM TIMBER SPOTTER Attending Note: I saw and examined the patient with the Fellow/resident and agree with their findings. Briefly, Lorena Escalante is a 18 year old who presents with headache evaluation. She has no pastmedical history. Headache for the last year. No precipitating factors. Headache is noted to be daily. Usually its a dull ache a 3-4/10. The headache is never severe enough or disabling or preventing her from performing activities of daily life. The headache travels holocephalic. No nausea or vomiting. Sometimes will have photophobia. Denies any autonomic features. Denies any weakness or numbness or tingling. No visual disturbances. Denies any auras. Lifestyle stanley she is a straight A student. It is not causing her to have any missed absences from school. Sleeps late at 10:30-11 pm and wakes up at 6:45 am. She wakes up during the night several times and she does not know. She denies any particular reason. She does not snore. She used to eat a lot of junk food but recently has cut down. Now on a protein based diet. She does not drink enough asurine is yellow. On average an hour and 10 minutes at school and at home 4-5 hours at home. She drinks caffeine. Sometimes she has dizziness and her ears pop up. PCP diagnosed her with Tension headache and was started on Amitriptyline for 1 month. She used Imitrex once. She does not use any abortive therapy at this time. Has used ibuprofen in the past. Family history of migraines in maternal grandmother. Maternal great grandmother had migraine and brain tumor. 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 Stressed by school and stressed by softball. Exam: Exam is intact with patient alert, oriented to self, place, time. Comprehension intact. Speech is fluent. Fundi normal. PERRLA. EOMI. CN 2-12 intact. Strength 5/5 B/L. DTR 2+ symmetric. Sensations intact to LT/PP/Vib/Temp. No dysmetria. Able to tandem, toe and heel walk. A/P: Tension headache owing to poor lifestyle choices. Lifestyle modifications discussed. Given sleep issues of sleeping later and waking up multiple times in a night, would like to refer to sleep medicine. Given that she is trying to lose weight, however eating a higher protein diet, I would like to refer her to clinical dietitian/supervisor cook room. For abortive therapy prescribed naproxen 500 mg to be taken when is having BAD headaches. Discussed side effects and medication overuse risk. Prophylactic therapy with Riboflavin 400 mg. Mother to call in 1 month with update. If headaches still the same on riboflavin and good lifestyle then will add magnesium 400 mg once daily as well. Discussed that her exam including fundoscopic exam is noted to be normal hence I would not want to do any head imaging at this time. Follow up in 3 months. Derek Gutierrez MD Pediatric Neurologist/Epileptologist documented in this encounter Plan of Treatment Scheduled Referrals Name Type Priority Associated Diagnoses Orde r Schedule Amb Pediatric Referral To Sleep Clinic @ (M Direct) Outpatient Referral Routine Insomnia, unspecified type 1 Occurrences starting 03/26/2019 until 03/25/2020 documented as of this encounter Visit Diagnoses Diagnosis Insomnia, unspecified type- Primary Obesity with body mass index (BMI) greater than 99th percentile for age in pediatric patient, unspecified obesity type, unspecified whether serious comorbidity present documented in this encounter Care Teams Produce Production Team Member Relationship Specialty Start Date End Date Jeremiah Jean MD [address] [place] [phone] PCP - General Family Medicine 02/16/19 documented as of this encounter
--- OUTSIDE RECORDS SUMMARY | 2024-03-01 03:04 | XMS_ITS ---
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, - Corrina Gomez LPN Social History Sex Assigned At : Social History Observation Description Sex Assigned At Female Vital Signs Temperature 98.6 degrees Fahrenheit 11/10/19 24 Blood pressure systolic 126 mm Hg 11/10/19 24 Blood pressure diastolic 70 mm Hg 024 Heart Rate 93 /min 11/10/2023 Respiratory Rate 20 /min 11/10/2023 Height 66 in 11/10/2023 Weight 339 lbs 11/10/2023 BMI 54.71 kg/m2 11/10/2023 Oximetry 100 11/10/2023 Weight-kg 153.77 Kg 11/10/2023 Height-cm 167.64 cm 11/10/2023 Encounters Encounter Location Date Provider Diagnosis [address] [place] [address] [place] [phone] 11/10/2023 Dave Morrissey Encounter for administrative examinations Z02.9 Assessments Encounter Date Diagnosis (ICD Code) Assessment Notes Treatment Notes Treatment Clinical Notes Section Notes 11/10/2023 Encounter for administrative examinations (ICD-10 - Z02.9) no medical contraindication to participation in athletic activities noted during exam Plan Of Treatment Treatment Notes Assessment Notes Encounter for administrative examination s no medical contraindication to participation in athletic activities noted during exam Next Appt Details Follow Up: 1 Year,prnOsmany: Progress Notes * Von ESCALANTEiDOB:2000 (23 yo F)Acc No.[id number]:11/10/2023 FaceToFace Patient:Lorena BARKER Provider:?Dave Morrissey MD Case Label:?Date Of Injur y: :2000???Age:23 Y???Sex:Female D ate:11/10/2023 Address:[address] [place], [place] [phone] Pcp:Provider Non [facility] Choice Provider Patient's Default Facility:[address] [place] [address] [facility] Check In:04:23 PM CSTCheck O ut:04:55 PM POLISH COMPOUNDER Subjective: * Chief Complaints: * ???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 Patient presents for sports physical eval. to participate in softball. * Medical History:? * Surgical History:? * Hospitalization/Major Diagno stic Procedure:? * Medications:? Objective: * Vitals:?Wt: 339 lbs, Wt Kgs: 153.77 Kg, Ht: 66 in, Ht cms: 167.64 cm, BMI:54.71Index, BP:126/70mm Hg, HR: 93 /min, Temp: 98.6 F, RR: 20 /min, Oxygen sat %: 100. * Examination: ???General Examination: ???see scanned document. Assessment: * Assessment: 1.?Encounter for administrat glen examinations - Z02.9 (Primary)??? Plan: * Treatment: * Procedure Codes:? * Follow Up:?1 Year,prn Care Plan: * Problems:? * Billing Information: * Visit Code:? 54687 Office Visit, New Pt., Level 2. * Procedure Codes:? * Sign off status: Completed true * Provider:?Dave Morrissey MD Date:?11/10/19 24 Generated for Isamari laura/Chase/eTransmitting on:?03/01/2024 03:04 AM POLISH COMPOUNDER History and Physical Notes * HPI (History of Present Illness) Category Sub-Category Detail Notes Category Not es Constitutional Patient prese nts for sports physical eval. to participate in softball. Examination Category Sub-Category Detail Notes Category Not es General Examination see scan mariann document
--- OUTSIDE RECORDS SUMMARY | 2024-03-01 03:05 | XMS_ITS | Patient Health Record ---
Author Organization [facility] Address [address] [place] [phone] Care Team Providers Care Abrasive Grader Helper Name Role Phone Crews, Lelia Primary Care Provider [phone] Eighty Four, Dave Unavailable [phone] Ashlee Grimaldoty Unavailable [phone] Allergies No Known Allergies Results Component Value Reference Range Notes X ray : KUB (Kidneys, Ureter s, and Bladder) Reviewed date:12/11/2023 04:54:54 PM Interpretation:Normal Performing Lab: Notes/Report: Normal Reason For Referral No Information Social History Tobacco Use: Social History Observation [...] Status W/U Status Risk Notes Problem Overweight (061363794) Overweight (E66.3) Active confirmed Problem [id number] Acute constipation (K59.00) Active confirmed Vital Signs Heart Rate 114 /min 12/10/2023 Temperature 98.2 degrees Fahrenheit 12/10/2023 Respiratory Rate 20 /min 12/10/2023 Height-cm 167.64 cm 12/10/2023 Oximetry 99 12/10/2023 Blood pressure diastolic 70 mm Hg 12/10/2023 Weight-kg 150.14 Kg 12/10/2023 Height 66 in 12/10/2023 Blood pressure systolic 140 mm Hg 12/10/2023 Weight 331 lbs 12/10/2023 BMI 53.42 kg/m2 12/10/2023 Encounters Encounter Location Date Provider Diagnosis [facility] [address] [place], [place] [phone] 11/10/2023 Dave Parkeres Encounter for administrative examinations Z02.[address] [place] [address] [place], [place] [id number] 12/10/2023 Pushpa Dillan Abdominal discomfort R10.9 ; Acute constipation K59.00 and Sinus drainage J34.89 Assessments Encounter Date Diagnosis (ICD Code) Assessment Notes Treatment Notes Treatment Clinical Notes Section Notes 12/10/2023 Abdominal discomfort (ICD-10 - R10.9) 12/10/2023 Acute constipation (ICD-10 - K59.00) Increase dietry fiber. Recommend OTC MiraLax BID and stool softeners daily. 11/10/2023 Encounter for administrative examinations (ICD-10 - Z02.9) no medical contraindication to participation in athletic activities noted during exam 12/10/2023 Sinus drainage (ICD-10 - J34.89) Recommend OTC Mucinex for cough and congestion. 12/10/2023 Other Plan Of Treatment No Information Insurance Providers Payer Name Payer Address Payer Phone Subscriber Number Group Number Insured Name Patient Relationship to Insured Coverage Start Date Coverage End Date [facility] [address] [address] [place] [phone] [id number] Renard Escalante Child - Insured has Financial Responsibility
--- OUTSIDE RECORDS SUMMARY | 2024-03-01 03:05 | XMS_ITS | Patient Health Record ---
Author Organization [facility] Address [address] [place] [address] Care Team Providers Care Chemical Sprayer Name Role Phone Wilda Cuevas Primary Care Provider ALLERGIES No Known Allergies REASON FOR REFERRAL No Information MEDICATIONS Medication SIG (Take, Route, Frequency, Duration) Notes Start Date End Date Status Mupirocin Calcium 2 % 1 application Externally Three times a day for 10 day(s) Active Ondansetron HCl 4 MG 1 tablet Orally adelaida ry 4 to 6 hours as needed for 14 day(s) 12/27/2021 Active Flonase Allergy Relief 50 MCG/ACT 1 spray in each nostril Nasally Once a day for 30 day(s) Active Vitamin D Active Iron Active Tri-Sprintec Active Claritin-D 24 Hour 10-240 MG 1 tablet as needed Orally Once a day for 14 days called this rx to pt's pharmacy. 12/27/2021 Active valACYclovir HCl 1 GM 1 tablet Orally bi d for 10 day(s) Active Fluticasone Propionate 50 MCG/ACT 1 spray in each nostril Nasally Once a day for 30 day(s) Active SOCIAL HISTORY Sex Assigned At : Social History Observation Description Sex Assigned At Unknown Tobacco Use/Smoking Question Answer Notes Additional Findings: Tobacco Non-User Aggressive non-smoker Alcohol Screen (Audit-C) Question Answer Notes Did you have a drink containing alcohol in the p ast year? No Points 0 Interpretation Negative PLAN OF TREATMENT No Information Insurance Providers Payer Name Payer Address Payer Phone Subscriber Number Group Number Insured Name Patient Relationship to Insured Coverage Start Date Coverage End Date [facility] [address] [place], [place] [id number] SHILO REESE Child - Insured has Financial Responsibility MEDICAL (GENERAL) HISTORY Medical History History ICD Code vitamin D deficiency iron deficiency anemia Surgical History Surgery Date(Month/Year) tightrope surgery on her right ankle 202 0 wrist surgery when younger to reset a br oken bone
== END 2024-02-23 13:44 | disposition home or self-care (01) ==
PROVIDERS: Anesthesiology; PCP Family Medicine; Referring Provider Nurse Practitioner; Visit Provider Internal Medicine Gastroenterology
PROC: 0DJ08ZZ Inspection of Upper Intestinal Tract, Via Natural or Artificial Opening Endoscopic (ICD-10-PCS; CPT 43235; principal; 2024-02-23 14:00)
DX: K59.00 Constipation, unspecified (principal); R14.2 Eructation; E66.01 Morbid (severe) obesity due to excess calories; Z68.43 Body mass index [BMI] 50.0-59.9, adult
CPT/HCPCS: 45378; 43239; 88305; J2003; J2250; J2704; J7120

== ENCOUNTER 2024-07-07 00:32 | Emergency (ER) | payer OTHER, SELFPAY ==
--- NOTE | ~2024-07-07 | CT_ITS ---
CT of the Abdomen and Pelvis: Indication: Abdominal pain Technique: 2.5 mm axial scans were obtained through the abdomen and pelvis following intravenous adm inistration of 100 cc of Omnipaque 350. Dose reduction technique was used on this scan by utilizing a utomated exposure control and iterative reconstruction technique. The dose-length product (DLP) was 1 894.05 mGy-cm. COMPARISON: 02/12/2024 Findings: Scans through the lung bases are unremarkable. The liver, spleen, pancreas, gallbladder, adrenals and kidneys are within normal limits. No evidence of aortic aneurysm. No lymphadenopathy. No bowel obstruction or bowel wall thickening. There is no evidence to suggest acute appendicitis. Images through the pelvis were performed. Urinary bladder unremarkable. No pelvic mass seen. No ascit es. Impression: No significant abnormalities seen. Reviewed, dictated and finalized at [facility]. Impression: No significant abnormalities seen.
[2024-07-07 00:32] VITALS: BP 156/92; PULSE 80; RESP 20; TEMP 36.8; O2SAT 98
--- OUTSIDE RECORDS SUMMARY | 2024-07-07 00:35 | XMS_ITS | Encounter Summary ---
Author Organization [facility] Address [address] [place] [address] Phone Care Team Providers Care Nuclear Medicine Specialist Name Role Phone Jeremiah Jean MD Primary Care Provider [phone] Encounter Details Date Type Department Care Team (Latest Contact Info) Description 09/21/2021 Transcribe Orders [facility] PREOP/PACU II [address] [place] [address] Renard Zhao MD [address] [facility] [address] [place] [address] Pre-op testing (Primary Dx) Social [...] unspecified documented in this encounter Care Teams Nuclear Medicine Specialist Relationship Specialty Start Date End Date Jeremiah Jean MD [address] [place] [id number] PCP - General Pediatrics 09/24/21 documented as of this encounter
--- OUTSIDE RECORDS SUMMARY | 2024-07-07 00:35 | XMS_ITS ---
Author Organization [address] [place] [address] [facility] Address [address] [place] [id number] Care Team Providers Care Plastics Engineer Name Role Phone Lelia Apple Primary Care Provider [phone] REASON FOR VISIT EST-CARE, 1 week f/u constipation, No record on WebIZ Social History Sex Assigned At : Social History Observation Description Sex Assigned At Female Encounters Encounter Location Date Provider Diagnosis [address] [place] [address] [facility] [address] [place], [place] [id number] 12/17/2023 Lelia Apple Plan Of Treatment No Information Progress Notes * Ramses ESCALANTEB:2000 (23 yo F)Acc No.[id number]:12/17/2023 FaceToFace Patient: Lorena [place] Provider: Kat Apple APRN Case Label: Date Of Injury: :2000 A ge:23 Y S ex:Female Date:12/17/2023 Address:[address] [place] [phone] Patient's Default Facility:[address] [place] [address] Subjective: * Chief Complaints: * 1 . EST-CARE, 1 week f/u constipation. 2. No record on WebIZ. * Medical History: Objective: * Vitals: Assessment: Plan: * Treatment: Care Plan: * Problems: * Billing Information: * Visit Code: * Procedure Codes: * Electronic signature of Lyle Apple APRN-AALIYAH on 07/07/2024 at 12:35 AM CDT Sign off status: Pending * Provider: Kat Apple APRN Date: 1 Generated for Sandy Beasley/Adis on: 0 07/07/2024 12:35 AM CDT
--- OUTSIDE RECORDS SUMMARY | 2024-07-07 00:35 | XMS_ITS | Clinical Summary ---
Author Organization [facility] Address [address] [place] [address] Care Team Providers Care Change Advisor Name Role Phone Jeremiah Jean MD Primary Care Provider [phone] Source Comments [facility],non-owned Affiliates and Associated Physician Practices is amultiple site organization consisting of ambulatory clinics and hospital sitesin [place], [place], [place] and [place]. This disclosure is being madepursuant to the Care Everywhere program and may not contain all information available regarding this patient. Last updated 17.[facility] Allergies No known active allergies Medications * Be aware that medications may not be up to date on this document. Alwaysverify current medications with the patient. 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 Gender Identity Not on file Sexual Orientation Not on file Last Filed Vital Signs Vital Sign Reading Time Taken Comments Blood Pressure 110/62 04/19/2019 2:21 PM KINESIOTHERAPIST Pulse 75 04/19/2019 2:21 PM KINESIOTHERAPIST Temperature 36.7 C (98 F) 02/11/2019 8:47 AM KINESIOTHERAPIST per pcp Respiratory Rate - - Oxygen Saturation 98% 04/19/2019 2:21 PM KINESIOTHERAPIST Inhaled Oxygen Concentration - - Weight 120.2 kg (264 lb 15.9 oz) 04/19/2019 2:21 PM KINESIOTHERAPIST Height 166.5 cm (5' 5.55 ) 04/19/2019 2:21 PM CS T Body Mass Index 43.36 04/19/2019 2:21 PM KINESIOTHERAPIST Plan of Treatment Health Maintenance Due Date Last Done Comments PAP SMEAR 2002 HIV SCREENING 2017 HPV VACCINE (1 - 3-dose series) 2017 CHLAMYDIA/GONORRHEA SCREENING 2018 MENINGOCOCCAL (Group B) VACC INE SHARED DECISION-MAKING (1 of 2 - Standard) 2018 HEPATITIS C SCREENING 09/24/2020 DTAP/TDAP/TD VACCINES (1 - Tdap) 2021 HEPATITIS B VACCINE (1 of 3 - 19+ 3-dose series) 2021 COVID-19 VACCINE (1 - 2023-2 5 season) 2023 DEPRESSION SCREENING 03/03/2024 INFLUENZA VACCINE (Season Ended) 2024 ZOSTER VACCINE (1 of 2) 2052 HIB VACCINE Aged Out No longer eligi ble based on patient's age to complete this topic MENINGOCOCCAL GROUPS A/C/Y/W VACCINE Aged Out No longer eligible b ased on patient's age to complete this topic PNEUMOCOCCAL VACCINE Aged Out No long er eligible based on patient's age to complete this topic Insurance [facility] SELF PAY NO INSURANCE Member Subscriber Plan / Payer (Ef fective for All Dates) Name:Lorena Reese Member ID:Not on file Relation to Subscriber:Not on file Name:LORENA REESE Subscriber ID:Not on file (Home) Address: [address] [place], [place] [address] Payer ID:Not on file Group ID:Not on file Type:Self Pay Address: [place], [place] [facility] [place]ICAID - [place] Care Teams Change Advisor Relationship Specialty Start Date End Date Jeremiah Jean MD [address] [place] [address] PCP - General Family Medicine 02/16/19
--- OUTSIDE RECORDS SUMMARY | 2024-07-07 00:35 | XMS_ITS | Patient Health Record ---
Author Organization [facility] Address [address] [place] [id number] Care Team Providers Care Business Representative Name Role Phone Crews, Lelia Primary Care Provider Yuni, Dave Unavailable [phone] Ashlee Grimaldoty Unavailable [phone] Allergies No Known Allergies Results Component Value [...] History Observation Description Sex Assigned At Female Substance Use Category: Question Answer Notes Have you used drugs [...] Status W/U Status Risk Notes Problem Overweight (202200950) Overweight (E66.3) Active confirmed Problem [id number] Acute constipation (K59.00) Active confirmed Vital Signs [...] 12/10/2023 Encounters Encounter Location Date Provider Diagnosis [address] [place] [address] [place] [id number] 11/10/2023 Dave Morrissey Encounter for administrative examinations Z02.[address] [place] [address] [place], [place] [id number] 12/10/2023 Pushpa Dillan Abdominal discomfort R10.9 ; Acute constipation K59.00 and Sinus drainage J34.[address] [place] [address] [place], [place] [id number] 06/21/2024 Lelia Apple Assessments Encounter Date Diagnosis (ICD Code) Assessment Notes Treatment Notes Treatment Clinical Notes Section Notes 11/10/2023 Encounter for administrative examinations (ICD-10 - Z02.9) no medical contraindication to participation in athletic activities noted during exam 12/10/2023 Abdominal discomfort (ICD-10 - R10.9) 12/10/2023 [...] Insured Coverage Start Date Coverage End Date [facility] [address] [place] [address] [id number] Renard Escalante Child - Insured has Financial Responsibility
--- OUTSIDE RECORDS SUMMARY | 2024-07-07 00:35 | XMS_ITS | Patient Health Record ---
Author Organization [facility] Address [address] [place] [address] Care Team Providers Care Wire Bender Hand Name Role Phone Wilda Cuevas Primary Care [...] Insured Coverage Start Date Coverage End Date [facility] [address] [place], [place] [id number] SHILO REESE Child - Insured has Financial Responsibility MEDICAL (GENERAL) HISTORY Medical History History ICD Code vitamin D deficiency iron deficiency anemia Surgical History Surgery Date(Month/Year) tightrope surgery on her right ankle 202 0 wrist surgery when younger to reset a br oken bone
--- OUTSIDE RECORDS SUMMARY | 2024-07-07 00:35 | XMS_ITS | Clinical Summary ---
Author Organization [facility] Address [address] [place] [address] Phone Care Team Providers Care Deputy Commissioner Name Role Phone Jeremiah Jean MD Primary Care Provider [phone] Allergies No known active allergies Medications amitriptyline (ELAVIL) 50 MG Tablet Take 50 mg by mouth nightly as needed. Active ergocalciferol (VITAMIN D) 09948 UNIT CapsuleIndicat ions:Vitamin D Deficiency Take 50,000 [...] 83 09/24/2021 6:45 AM CDT Temperature 36.1 C (97 F) 09/24/2021 8:36 AM CDT Respiratory Rate 16 [...] ID:Not on file Type:Not on file Address: [address] Care Teams Deputy Commissioner Relationship Specialty Start Date End Date Jeremiah Jean MD [address] [place] [address] PCP - General Pediatrics 09/24/21
--- NOTE | 2024-07-07 00:38 | ED.ABDPAIN ---
HPI - Abdominal Pain General Chief Complaint: Abdominal Pain Stated Complaint: Abd Pain Time Seen by Provider: 07/07/24 00:37 Source: patient Mode of arrival: ambulatory Limitations: no limitations History of Present Illness HPI narrative: patient is a 23-year-old female with right lower quadrant pain that started a few hours ago. Patient said this was acute onset. She has not had abdominal surgery in the past. She does have PCOS. She has IBS. She tried IBS medication without success and relief of pain. No nausea vomiting or diarrhea. Pain is sharp and unresolved. MD elicited complaint: abdominal pain Pertinent past history: other ( PCOS, IBS) Onset (ago): hour(s) ( 3) Pain Consistency: constant Location: RLQ Severity: moderate Pain scale (0-10): 6 Quality: sharp Radiation: none Migration to: no migration Exacerbating factors: nothing Relieving factors: nothing Context: confirms other ( patient is having progressively worse right lower quadrant abdominal pain.) Associated symptoms: denies other symptoms Treatments prior to arrival: other ( Levsin) Related Data Home Medications ?Medication ?Instructions ?Recorded ?Confirmed ?Last Taken ?Type norethindrone 1 mg-ethinyl 1 tablet PO DAILY 01/26/24 03/22/24 02/22/24 History estradiol 20 mcg (24)-iron 75 mg (4) tablet (Chica 24 Fe) naproxen 500 mg tablet 500 mg PO DAILY PRN pain 02/10/24 03/22/24 Unknown History Allergies Allergy/AdvReac Type Severity Reaction Status Date / Time No Known Allergies Allergy Mild Verified 03/22/24 13:05 Review of Systems Review of Systems: All systems reviewed & are unremarkable except as noted in HPI and below Constitutional: Constitutional: Reports no additional constitutional complaints Eyes: Eyes: Reports no additional eye complaints ENT: Reports system reviewed and no additional complaints, except as documented Cardiovascular: Cardiovascular: Reports no additional cardiovascular complaints Respiratory: Respiratory: Reports no additional respiratory complaints Gastrointestinal: Gastrointestinal: Reports no additional gastrointestinal complaints Genitourinary: Genitourinary: Reports no additional female genitourinary complaints Musculoskeletal: Musculoskeletal: Reports no additional musculoskeletal complaints Integumentary/Breasts: Skin/Breast: Reports system reviewed and no additional complaints, except as docu Neurologic: Reports system reviewed and no additional complaints, except as documented Psychiatric: Psychiatric: Reports no additional psychiatric complaints Endocrine: Endocrine: Reports no additional endocrine complaints Hematologic/Lymphatic: Hematologic/Lymphatic: Reports no additional hematologic/lymphatic complaints Allergic/Immunologic: Allergic/Immunologic: Reports no additional allergic/immunologic complaints PMFSH Social History Social History Smoking status: Never smoker Alcohol intake: never Substance use: never Substance use type: does not use Living arrangements: dorm student housing Additional living arrangements comments: Apartment in [facility] Spiritual care concerns: No Exam Const: General: healthy appearing Nutritional Appearance: well nourished Orientation/consciousness: patient oriented x3 Limitations: no limitations HENMT: Head: normal to inspection Ears: external ears normal Face/Nose/Sinus: Normal external nose present Eyes: Conjunctivae: conjunctivae normal Pupils: Equal, round and reactive pupils present EOM: EOMs intact bilaterally Neck: Neck: normal visual inspection Chest: Chest palpation & inspection: normal inspection of the chest Resp: Effort & Inspection: normal respiratory effort and not labored Auscultation: clear to auscultation bilaterally and no crackles Cardio: Rate: regular rate Rhythm: regular rhythm Heart sounds: no murmurs GI: Inspection: non-distended GI Palp: Yes Soft to palpation, Yes Tenderness to palpation present (GI) ( right lower quadrant), Yes Guarding due to palpation present (GI), No Rigid due to palpation, No Hernia present, No Palpable mass present and No Rebound tenderness present Auscultation: normal bowel sounds : General: Yes bladder normal to palpation Back/Spine/Pelvis: Back: no CVA tenderness Skin: General skin exam: normal color Rashes: no rashes Wounds: no wounds Neuro: General: patient oriented x3 Cranial nerves: Yes Nystagmus not present Speech: normal speech Gait exam (Neuro): Normal gait present Extrem: General: normal to inspection Psych: Mental Status: mental status grossly normal Affect: normal affect Attitude: cooperative MDM - Abdominal Pain MDM Narrative Medical decision making narrative: patient is a 23-year-old female with right lower quadrant abdominal pain. We will do an abdomen workup to include a CT scan with contrast. Lab Data Attestation: I reviewed the patient's lab results. 07/07/24 01:00 07/07/24 01:00 Labs: Lab Results 07/07/24 07/07/24 Range/Units 01:00 01:55 WBC 11.1 H (4.8-10.8) K/mm3 RBC 4.31 (4.20-5.40) M/mm3 Hgb 12.1 (12.0-15.0) g/dL Hct 38.3 (35.0-49.0) % MCV 88.9 (78.0-102.0) fL MCH 28.1 (27.0-31.0) pg MCHC 31.6 L (32-36) g/dL RDW 12.7 (11.6-14.4) % Plt Count 247 (150-420) K/mm3 MPV 9.6 (9.2-11.8) fl Immature Gran % (Auto) 0.5 H (0.0-0.0) % Neut % (Auto) 61.7 (50.0-70.0) % Lymph % (Auto) 28.1 (18.0-42.0) % [place] % (Auto) 7.8 (2.0-11.0) % Eos % (Auto) 1.4 (1.0-6.0) % Baso % (Auto) 0.5 (0.0-1.0) % Lymph # (Auto) 3.12 (1.10-4.50) K/mm3 [place] # (Auto) 0.87 (0.10-0.90) K/mm3 Eos # (Auto) 0.16 (0.02-0.50) K/mm3 Baso # (Auto) 0.06 (0.00-0.10) K/mm3 Abs Immat Gran (auto) 0.05 H (0.00-0.00) K/mm3 Absolute Neuts (auto) 6.84 (1.70-7.20) K/mm3 Absolute Nucleated RBC 0.00 (0.00-0.00) K/mm3 Nucleated RBC % 0.0 (0-0.0) % PT 9.7 (9.50-12.1) Seconds INR 0.9 APTT 27.5 (23.9-30.70) Sec Sodium 135 L (136-145) mmol/L Potassium 3.8 (3.5-5.1) mmol/L Chloride 101 (98-108) mmol/L Carbon Dioxide 29 (21-32) mmol/L Anion Gap 5 (4-12) mmol/L BUN 15 (7-18) mg/dL Creatinine 1.01 (0.55-1.02) mg/dL Estim Creat Clear Calc Not Reportable Estimated GFR > 60 (59 - ) Glucose 99 (70-99) mg/dL Calculated Osmolality 280 L (285-295) mOsm/kg Lactic Acid 1.2 (0.4-2.0) mmol/L Calcium 9.1 (8.5-10.1) mg/dL Total Bilirubin 0.2 (0.00-1.00) mg/dL AST 10 L (15-37) U/L ALT 18 (14-59) U/L Alkaline Phosphatase 78 (46-116) U/L Total Protein 7.3 (6.4-8.2) g/dL Albumin 3.3 L (3.4-5.0) g/dL Lipase 29 (16-77) U/L Serum HCG, Qual Negative Urine Color Light yellow (Yellow) Urine Appearance Clear (Clear) Urine pH 6.0 (5.0-8.0) Ur Specific [place] 1.020 (1.010-1.020) Urine Protein Negative (Negative) Urine Glucose (UA) Negative (Negative) Urine Ketones Negative (Negative) Ur Blood (Man) Negative (Negative) Urine Nitrate Negative (Negative) Urine Bilirubin Negative (Negative) Urine Urobilinogen 0.2 (0.2-1.0) mg/dL Leukocyte Esterase Rfl Negative (Negative) SANDY/UL Imaging Data Attestation: I personally reviewed and interpreted this imaging study as follows: Radiologist's impression: CT scan of abdomen and pelvis with contrast was negative for acute process Discharge Plan Discharge Clinical Impression: Abdominal pain Qualifiers: Abdominal location: right lower quadrant Qualified Code(s): R10.31 - Right lower quadrant pain Patient Disposition: Home Condition: Stable Instructions: Abdominal Pain (ED) Patient Language: Kiswahili Prescriptions: No Action Chica 24 Fe 1 mg-20 mcg (24)/75 mg (4) tablet 1 tablet PO DAILY famotidine 40 mg tablet 40 mg PO DAILY Qty: 30 3RF Patient Comments: Patient has not started yet hyoscyamine sulfate [Levsin] 0.125 mg tablet 0.125 mg PO .every 6 hours PRN (Reason: abdominal pain) Qty: 120 3RF naproxen 500 mg tablet 500 mg PO DAILY PRN (Reason: pain) Patient Comments: takes medication PRN omeprazole 20 mg capsule,delayed release(DR/EC) See Rx Instructions .ROUTE .COMPLEX Qty: 90 0RF Dose Instruction: TAKE 1 CAPSULE BY MOUTH DAILY Rx Instructions: TAKE 1 CAPSULE BY MOUTH DAILY Follow-up/Referrals: Jeremiah Jean MD [Primary Care Provider] - Time of Disposition: 03:11
[2024-07-07 01:05] LABS: Basophils Absolute Auto 0.06 K/mm3 (0.00-0.10); Basophils Percent Auto 0.5 % (0.0-1.0); Eosinophils Absolute Auto 0.16 K/mm3 (0.02-0.50); Eosinophils Percent Auto 1.4 % (1.0-6.0); Hematocrit 38.3 % (35.0-49.0); Hemoglobin 12.1 g/dL (12.0-15.0); Immature Granulocyte Absolute 0.05 K/mm3 (0.00-0.00); Immature Granulocyte Percent A 0.5 % (0.0-0.0); Lymphocytes Absolute Auto 3.12 K/mm3 (1.10-4.50); Lymphocytes Percent Auto 28.1 % (18.0-42.0); Mean Corpuscular HGB Conc 31.6 g/dL (32-36); Mean Corpuscular Hemoglobin 28.1 pg (27.0-31.0); Mean Corpuscular Volume 88.9 fL (78.0-102.0); Mean Platelet Volume 9.6 fl (9.2-11.8); Monocytes Absolute Auto 0.87 K/mm3 (0.10-0.90); Monocytes Percent Auto 7.8 % (2.0-11.0); Neutrophils Absolute Auto 6.84 K/mm3 (1.70-7.20); Neutrophils Percent Auto 61.7 % (50.0-70.0); Platelet Count Result 247 K/mm3 (150-420); Red Blood Count 4.31 M/mm3 (4.20-5.40); Red Cell Distribution Width 12.7 % (11.6-14.4); White Blood Count 11.1 K/mm3 (4.8-10.8)
[2024-07-07 01:20] LABS: Alanine Aminotransferase 18 U/L (14-59); Albumin Level 3.3 g/dL (3.4-5.0); Alkaline Phosphatase 78 U/L (46-116); Anion Gap 5 mmol/L (4-12); Aspartate Amino Transferase 10 U/L (15-37); Bilirubin,Total 0.2 mg/dL (0.00-1.00); Blood Urea Nitrogen 15 mg/dL (7-18); Calcium 9.1 mg/dL (8.5-10.1); Carbon Dioxide 29 mmol/L (21-32); Chloride 101 mmol/L (98-108); Estimated Glomerular Filt Rate > 60; Glucose 99 mg/dL (70-99); Lipase 29 U/L (16-77); Osmolality Calculated 280 mOsm/kg (285-295); Potassium 3.8 mmol/L (3.5-5.1); Sodium 135 mmol/L (136-145); Total Protein 7.3 g/dL (6.4-8.2)
[2024-07-07 01:23] LABS: INR 0.9; Partial Thromboplastin Time 27.5 Sec (23.9-30.70); Prothrombin Time 9.7 Seconds (9.50-12.1)
[2024-07-07 01:25] LABS: Lactic Acid Reflex 1.2 mmol/L (0.4-2.0)
--- OUTSIDE RECORDS SUMMARY | 2024-07-07 01:40 | XMS_ITS | Encounter Summary ---
Author Organization [facility] Address [address] [place] [address] Phone Care Team Providers Care Operations Professional Name Role Phone Jeremiah Jean MD Primary Care Provider [phone] Encounter Details Date Type Department Care Team (Latest Contact Info) Description 09/21/2021 Transcribe Orders [facility] PREOP/PACU II [address] [place] [address] Renard Zhao MD [address] [facility] [address] [place] [address] Pre-op testing (Primary Dx) Social [...] unspecified documented in this encounter Care Teams Operations Professional Relationship Specialty Start Date End Date Jeremiah Jean MD [address] [id number] PCP - General Pediatrics 09/24/21 documented as of this encounter
--- OUTSIDE RECORDS SUMMARY | 2024-07-07 01:40 | XMS_ITS | Clinical Summary ---
Author Organization [facility] Address [address] [place] [address] Phone Care Team Providers Care Bridge Manager Name Role Phone Jeremiah Jean MD Primary Care Provider [phone] Allergies No known active allergies Medications amitriptyline (ELAVIL) 50 MG Tablet Take 50 mg by mouth nightly as needed. Active ergocalciferol (VITAMIN D) 53372 UNIT CapsuleIndicat ions:Vitamin D Deficiency Take 50,000 [...] ID:Not on file Type:Not on file Address: [address] Care Teams Bridge Manager Relationship Specialty Start Date End Date Jeremiah Jean MD [address] [place] [address] PCP - General Pediatrics 09/24/21
--- OUTSIDE RECORDS SUMMARY | 2024-07-07 01:40 | XMS_ITS | Clinical Summary ---
Author Organization [facility] Address [address] [place] [address] Care Team Providers Care Design Lead Name Role Phone Unavailable Primary Care Provider Unavailabl e Social History Tobacco Use Types Packs/Day Years Used Date Smoking Tobacco: Never Assessed Comments Unknown Sex and Gender Information Value Date Recorded Sex Assigned at Not on file Legal Sex Female 3:10 PM CDT Gender Identity Not on file Sexual Orientation Not on file Plan of Treatment Health Maintenance Due Date Last Done Comments Cervical Cancer Screening Pa p Smear (Age 21 to 29) Every 3 Years 2002 Cervical Cancer Screening 2002 Annual Physical 2005 HPV Vaccines (1 - 3-dose series) 2017 Meningococcal B Vaccine (1 o f 2 - Standard) 2018 Hepatitis C 2020 DTaP, Tdap and Td Vaccines ( 1 - Tdap) 2021 Hepatitis B Vaccines (1 of 3 - 19+ 3-dose series) 2021 COVID-19 Vaccine (1 - 2023-2 5 season) 2023 Meningococcal Vaccine Aged Out No carol agatha eligible based on patient's age to complete this topic Pneumococcal Vaccine: Pediat rics (0 to 5 Years) and At-Risk Patients (6 to 49 Years) Aged Out No longer eligible b ased on patient's age to complete this topic RSV Immunizations Under 20 Months Aged Out No longer eligible based on patient's age to complete this topic Insurance [place]
--- OUTSIDE RECORDS SUMMARY | 2024-07-07 01:40 | XMS_ITS | Clinical Summary ---
Author Organization [facility] Address [address] [place] [address] Care Team Providers Care Exchange Trouble Shooter Name Role Phone Jeremiah Jean MD Primary Care Provider [phone] Source Comments [facility],non-owned Affiliates and Associated Physician Practices is amultiple site organization consisting of ambulatory clinics and hospital sitesin [place], [place], [place] and [place]. This disclosure is being madepursuant to the Care Everywhere program and may not contain all information available regarding this patient. 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 Gender Identity Not on file Sexual Orientation Not on file Last Filed Vital Signs Vital Sign Reading Time Taken Comments Blood Pressure 110/62 04/19/2019 2:21 PM LOCAL DELIVERY DRIVER Pulse 75 04/19/2019 2:21 PM LOCAL DELIVERY DRIVER Temperature 36.7 C (98 F) 02/11/2019 8:47 AM LOCAL DELIVERY DRIVER per pcp Respiratory Rate - - Oxygen Saturation 98% 04/19/2019 2:21 PM LOCAL DELIVERY DRIVER Inhaled Oxygen Concentration - - Weight 120.2 kg (264 lb 15.9 oz) 04/19/2019 2:21 PM LOCAL DELIVERY DRIVER Height 166.5 cm (5' 5.55 ) 04/19/2019 2:21 PM CS T Body Mass Index 43.36 04/19/2019 2:21 PM LOCAL DELIVERY DRIVER Plan of Treatment Health Maintenance Due Date [...] patient's age to complete this topic Insurance [facility] SELF PAY NO INSURANCE Member Subscriber Plan / Payer (Ef fective for All Dates) Name:Lorena Reese Member ID:Not on file Relation to Subscriber:Not on file Name:LORENA REESE Subscriber ID:Not on file (Home) Address: [address] [place], [place] [address] Payer ID:Not on file Group ID:Not on file Type:Self Pay Address: [place], [place] [facility] MEDICAID - [place] Care Teams Exchange Trouble Shooter Relationship Specialty Start Date End Date Jeremiah Jean MD [address] [place] [address] PCP - General Family Medicine 02/16/19
[2024-07-07 01:55] LABS: SPREG INTERNAL CONTROL Positive; Serum Qual hCG Negative
[2024-07-07 01:58] LABS: Add Urine Microscopic? NO; Appearance Urine Clear (Clear); Bilirubin Urine Negative (Negative); Blood Urine Negative (Negative); Color Urine Light Yellow (Yellow); Glucose Urine UA Negative (Negative); Ketones Urine Negative (Negative); Leukocyte Esterase Ur Negative LEU/UL (Negative); Nitrate Urine Negative (Negative); Protein Urine Negative (Negative); Urobilinogen Urine 0.2 mg/dL (0.2-1.0)
[2024-07-07] MEDS: MORPHINE SULFATE (*CRX) 2 MG/ML INJ IV PUSH (02:20)
[2024-07-07 03:30] VITALS: BP 151/62; PULSE 80; RESP 18; O2SAT 99
--- NOTE | 2024-07-08 12:31 | PC.NURSE ---
blood culture preliminary, no growth
== END 2024-07-07 03:30 | disposition home or self-care (01) ==
PROVIDERS: Emergency Provider Emergency Medicine; PCP Family Medicine
DX: R10.31 Right lower quadrant pain (principal)
CPT/HCPCS: 36415; 74177; 80053; 81003; 83605; 83690; 84703; 85025; 85610; 85730; 87040; 96374; 99284; J2270; Q9967